=== PATIENT | female | born 1940 ===

== ENCOUNTER 2018-04-07 12:32 | Inpatient (IN) | payer MEDICARE ==
--- NOTE | 2018-04-07 13:30 | RAD ---
Date of service: 04/07/2018 PROCEDURE: CHEST RADIOGRAPH, 1 VIEW HISTORY: SOB COMPARISON: None available. FINDINGS: LUNGS: Left lower lung opacity. PLEURA: No pneumothorax or pleural fluid seen. CARDIOVASCULAR: Prior sternotomy with sternal wires and surgical clips in place. Atherosclerotic aortic calcifications. Cardiomediastinal silhouette at the upper limits of normal in size. OSSEOUS STRUCTURES: Degenerative changes. VISUALIZED UPPER ABDOMEN: Normal. OTHER FINDINGS: None. IMPRESSION: Left lower lung opacity. CT scan can be obtained for further evaluation as clinically warranted.
[2018-04-07 13:58] LABS: CALCIUM 8.6 mg/dl (8.6-10.4)
[2018-04-07 14:11] LABS: FREE T4 0.66 ng/dL (0.78-2.19)
[2018-04-07 14:21] LABS: ALB/GLOB RATIO 0.9 (1.0-2.1); ALBUMIN 4.5 g/dL (3.5-5.0); TROPONIN I 0.035 ng/mL (0.00-0.120)
[2018-04-07] MEDS ORDERED: Sodium Chloride 0.9% 1,000 ML IV ONE (14:24)
[2018-04-07 14:30] LABS: SQUAMOUS EPITHIAL 2 /hpf (0-5); URINE BACTERIA MOD (<OCC); URINE BILIRUBIN NEGATIVE (NEGATIVE); URINE BLOOD NEGATIVE (NEGATIVE); URINE CLARITY Hazy (Clear); URINE COLOR Amber (YELLOW); URINE GLUCOSE (UA) NORMAL (Normal); URINE LEUKOCYTE ESTERASE 2+ Leu/uL (Negative); URINE PROTEIN NEGATIVE (NEGATIVE)
[2018-04-07] MEDS ORDERED: Sodium Chloride 0.9% 1,000 ML ONE (14:42)
--- NOTE | 2018-04-07 14:42 | CT ---
Date of service: 04/07/2018 PROCEDURE: CT Chest without contrast HISTORY: LLL opacity on CXR COMPARISON: None. TECHNIQUE: Contiguous axial images were obtained through the chest without intravenous contrast enhancement. Sagittal and coronal reconstructions were performed. Radiation dose (DLP): 14.3 mGy-cm. This CT exam was performed using one or more of the following dose reduction techniques: Automated exposure control, adjustment of the mA and/or kV according to patient size, and/or use of iterative reconstruction technique. FINDINGS: LUNGS: Left lower lobe atelectasis. Visualized airway clear. MEDIASTINUM: Unremarkable thoracic aorta. No aneurysm. Normal sized heart. Main pulmonary artery unremarkable. No vascular congestion. No lymphadenopathy. PLEURA: Small partially loculated left lower lobe effusion. No pneumothorax. BONES: No acute fracture. No destructive lesion. UPPER ABDOMEN: Grossly unremarkable. OTHER FINDINGS: None. IMPRESSION: Small partially loculated left lower lobe effusion with subjacent atelectasis.
--- NOTE | 2018-04-07 14:55 | CT ---
Date of service: 04/07/2018 PROCEDURE: CT HEAD WITHOUT CONTRAST. HISTORY: Dizziness COMPARISON: No prior study available for comparison. TECHNIQUE: Axial computed tomography images were obtained through the head/brain without intravenous contrast. Radiation dose: Total exam DLP = mGy-cm. This CT exam was performed using one or more of the following dose reduction techniques: Automated exposure control, adjustment of the mA and/or kV according to patient size, and/or use of iterative reconstruction technique. FINDINGS: HEMORRHAGE: No acute parenchymal, subarachnoid or extra-axial hemorrhage. BRAIN: Mild diffuse/ confluent chronic periventricular white matter ischemic changes seen extending into the deep white matter both cerebral hemispheres. . Moderate central volume loss evidenced by disproportionate enlargement of the ventricles compared sulci. Mild vascular calcifications both carotid siphons and vertebral arteries. VENTRICLES: No obstructive hydrocephalus. CALVARIUM: Unremarkable. PARANASAL SINUSES: Unremarkable as visualized. No significant inflammatory changes. MASTOID AIR CELLS: Partial opacification left mastoid air complex. . OTHER FINDINGS: Changes of bilateral cataract surgery are present. IMPRESSION: No acute intracranial hemorrhage. Mild chronic periventricular white matter ischemic changes. Moderate central volume loss.
--- NOTE | 2018-04-07 15:04 | C.PDOC ---
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 Limitations: language barrier Onset/Duration Of Symptoms: Days (1) Current Symptoms Are (Timing): Still Present Current Symptoms: Generalized weakness Associated Symptoms Preceding Syncopal Episode: Lightheadedness, Worse With Standing Fall Associated With With Symptoms: No Severity: Moderate Additional History Per: Prior Records - Symptoms Of CVA Recent Head Trauma: No Past Medical History Reviewed: Historical Data, Nursing Documentation, Vital Signs Vital Signs: Last Vital Signs Temp 98.5 F 04/07/18 12:35 Pulse 56 L 04/07/18 15:04 Resp 12 04/07/18 15:04 BP 152/68 H 04/07/18 15:04 Pulse Ox 97 04/07/18 15:05 - Medical History PMH: CAD, Dementia, Depression, Diabetes (type II), HTN, Hypercholesterolemia, Hyperlipidemia, Hypothyroidism Surgical History: CABG Family History: States: Unknown Family Hx - Social History Hx Tobacco Use: No Hx Alcohol Use: No Hx Substance Use: No - Immunization History Hx Tetanus Toxoid Vaccination: No Hx Influenza Vaccination: No Hx Pneumococcal Vaccination: No Review Of Systems Except As Marked, All Systems Reviewed And Found Negative. Constitutional: Positive for: Weakness, Malaise Cardiovascular: Negative for: Chest Pain Respiratory: Positive for: Shortness of Breath. Negative for: Cough Gastrointestinal: Negative for: Vomiting, Abdominal Pain, Diarrhea Musculoskeletal: Negative for: Neck Pain Skin: Negative for: Rash Neurological: Negative for: Weakness, Numbness, Seizures Physical Exam - Physical Exam Appears: Non-toxic, No Acute Distress Skin: Normal Color, Warm, Dry, No Rash Head: Atraumatic, Normacephalic Eye(s): bilateral: PERRL, EOMI Oral Mucosa: Dry Neck: Normal ROM, Supple Cardiovascular: Rhythm Regular Respiratory: Normal Breath Sounds, No Accessory Muscle Use Gastrointestinal/Abdominal: Soft, No Tenderness Back: No CVA Tenderness Extremity: Normal ROM, No Pedal Edema, No Calf Tenderness Neurological/Psych: Oriented x3, Normal Motor, Normal Sensation ED Course And Treatment - Laboratory Results Result Diagrams: 04/07/18 15:35 04/07/18 13:30 Interpretation Of Abnormal: Elevated BUN. UTI. ECG: Interpreted By Me, Viewed By Me ECG Rhythm: Sinus Rhythm, Nonspecific Changes Rate From EC O2 Sat by Pulse Oximetry: 97 Pulse Ox Interpretation: Normal - Radiology CXR: Viewed By Me, Read By Radiologist CXR Interpretation: Yes: Other (Left lower lung opacity. CT scan can be obtained for further evaluation as clinically warranted.) - CT Scan/US CT head Other Rad Studies (CT/US): Read By Radiologist, Radiology Report Reviewed CT/US Interpretation: IMPRESSION: No acute intracranial hemorrhage. Mild chronic periventricular white matter ischemic changes. Moderate central volume loss. CT chest Other Rad Studies (CT/US): Read By Radiologist, Radiology Report Reviewed CT/US Interpretation: IMPRESSION: Small partially loculated left lower lobe effusion with subjacent atelectasis. Progress - Interventions Interventions:: Observation, Intravenous fluid - Data Reviewed Data Reviewed: Lab, Diagnostic imaging, EKG, Old records - Patient Status Patient status: Partially improved - Continuity of Care Discussed patient case with:: Patient, ED Nurse, On-call PMD-pt unassigned - Patient Plan Patient Plan: Admission Disposition Discussed With : Bianca Martines Comment: She accepted pt on her service. Doctor Will See Patient In The: Hospital Counseled Patient/Family Regarding: Studies Performed, Diagnosis - Disposition Disposition: HOSPITALIZED Disposition Time: 15:59 Condition: FAIR - Clinical Impression Clinical Impression: Dizziness, UTI (urinary tract infection), Dehydration, Loculated pleural effusion
[2018-04-07 15:39] LABS: BASO # 0.1 K/uL (0.0-0.2); BASO % 0.8 % (0.0-2.0); EOS # 0.1 K/uL (0.0-0.7); EOS % 1.1 % (0.0-4.0); HEMOGLOBIN 11.9 g/dL (11.0-16.0); LYMPH # 2.9 K/uL (1.0-4.3); LYMPH % 36.3 % (20.0-40.0); MEAN CELL VOLUME 99.6 fL (81.0-99.0); MEAN CORPUSCULAR HGB CONC 34.2 g/dL (33.0-37.0); MEAN PLATELET VOLUME 10.5 fL (7.2-11.7); MONO # 0.5 K/uL (0.0-0.8); MONO % 5.9 % (0.0-10.0); NEUT # 4.5 K/uL (1.8-7.0); NEUT % 55.9 % (50.0-75.0); RBC 3.49 Mil/uL (3.80-5.20); RED CELL DISTRIBUTION WIDTH 14.6 % (11.5-14.5); WHITE BLOOD COUNT 8.1 K/uL (4.8-10.8)
[2018-04-07] MEDS ORDERED: Ciprofloxacin 400mg/200ml D5W 400 MG/200 ML BAG IVPB STA (15:48)
[2018-04-07] MEDS ORDERED: Ciprofloxacin 400mg/200ml D5W 400 MG/200 ML BAG IVPB ONE (15:58)
--- NOTE | 2018-04-07 21:34 | CP.PCM.PN ---
Subjective - Date & Time of Evaluation Date of Evaluation: 04/07/18 Time of Evaluation: 21:34 - Subjective Subjective: H&P dictated #[id number] Objective - Vital Signs/Intake and Output Vital Signs (last 24 hours): Temp Pulse Resp BP Pulse Ox 98.4 F 61 20 150/62 96 04/07/18 18:51 04/07/18 18:51 04/07/18 18:51 04/07/18 18:51 04/07/18 18:51 - Medications Medications: Current Medications Pneumococcal Polyvalent Vaccine (Pneumovax 23 Vaccine) 0.5 ml IM .ONCE ONE Stop: 04/09/18 10:01 - Labs Labs: 04/07/18 15:35 04/07/18 13:30
[2018-04-07] MEDS ORDERED: Sod Polystyrene Sulf 15 gm/60 ml Susp PO ONE (21:48)
[2018-04-07] MEDS ORDERED: Moxifloxacin IV 400mg/250ml NS 400 MG/250 ML BAG IVPB SCH (22:00)
[2018-04-08 07:31] LABS: BASO % 0.5 % (0.0-2.0); EOS # 0.1 K/uL (0.0-0.7); HEMOGLOBIN 11.3 g/dL (11.0-16.0); LYMPH % 41.5 % (20.0-40.0); MEAN CELL VOLUME 99.1 fL (81.0-99.0); MEAN CORPUSCULAR HEMOGLOBIN 34.3 pg (27.0-31.0); MEAN CORPUSCULAR HGB CONC 34.6 g/dL (33.0-37.0); MEAN PLATELET VOLUME 11.1 fL (7.2-11.7); MONO # 0.6 K/uL (0.0-0.8); MONO % 7.6 % (0.0-10.0); NEUT # 3.5 K/uL (1.8-7.0); NEUT % 48.4 % (50.0-75.0); NRBC % 0.1 % (0.0-2.0); RBC 3.3 Mil/uL (3.80-5.20); RED CELL DISTRIBUTION WIDTH 14.6 % (11.5-14.5); WHITE BLOOD COUNT 7.3 K/uL (4.8-10.8)
[2018-04-08 07:33] LABS: LDL CHOLESTEROL 92 mg/dL (0-129)
[2018-04-08 07:35] LABS: ALB/GLOB RATIO 0.8 (1.0-2.1); ALBUMIN 3.6 g/dL (3.5-5.0); ALT/SGPT 51 U/L (9-52); AST/SGOT 115 U/L (14-36); BLOOD UREA NITROGEN 19 mg/dL (7-17); CALCIUM 8.4 mg/dl (8.6-10.4); GFR AFRICAN-AMERICAN > 60; GFR NON-AFRICAN AMERICAN 53; HDL CHOLESTEROL 37 mg/dL (30-70)
[2018-04-08 07:44] LABS: T4 6.17 ug/dL (5.5-11.0)
--- NOTE | 2018-04-08 09:27 | CP.PCM.PN ---
Subjective - Date & Time of Evaluation Date of Evaluation: 04/08/18 Time of Evaluation: 09:27 - Subjective Subjective: Progress note dictated #[id number] Objective - Vital Signs/Intake and Output Vital Signs (last 24 hours): Temp Pulse Resp BP Pulse Ox 98.1 F 67 20 122/74 96 04/07/18 23:45 04/07/18 23:45 04/07/18 23:45 04/07/18 23:45 04/07/18 23:45 Intake and Output: 04/08/18 04/08/18 06:59 18:59 Intake Total 360 Balance 360 - Medications Medications: Current Medications Amlodipine Besylate (Norvasc) 5 mg PO DAILY [facility] Clopidogrel Bisulfate (Plavix) 75 mg PO DAILY [facility] Heparin Sodium (Porcine) (Heparin) 5,000 units SC Q12 [facility] Sodium Chloride (Sodium Chloride 0.45%) 1,000 mls @ 60 mls/hr IV .[id number] [facility] Aztreonam 500 mg/ Sodium (Chloride) 50 mls @ 100 mls/hr IVPB Q8H [facility] PRN Reason: Protocol Levothyroxine Sodium (Levothroid) 137 mcg PO DAILY@0630 [facility] Last Admin: 04/08/18 05:46 Dose: 137 mcg Losartan Potassium (Cozaar) 100 mg PO DAILY [facility] Meclizine HCl (Antivert) 25 mg PO DAILY PRN PRN Reason: dizziness Memantine (Namenda) 10 mg PO BID [facility] Pneumococcal Polyvalent Vaccine (Pneumovax 23 Vaccine) 0.5 ml IM .ONCE ONE Stop: 04/09/18 10:01 Potassium Phos/Sodium Phos (Neutra-Phos) 1 pkt PO QID [facility] Stop: 04/10/18 10:01 Rosuvastatin Calcium (Crestor) 5 mg PO HS [facility] Last Admin: 04/07/18 22:59 Dose: 5 mg Venlafaxine HCl (Effexor Xr) 75 mg PO DAILY [facility] - Labs Labs: 04/08/18 06:44 04/08/18 06:44
--- NOTE | 2018-04-08 10:32 | HP ---
CHIEF COMPLAINT: The patient is complaining that she is not feeling well over the past one week, dizziness after increased frequency of urination. HISTORY OF PRESENT ILLNESS: Ms. Vazquez is an 78-year-old female with past medical history of CAD, status post CABG, hypertension, hyperlipidemia, hypothyroidism, dementia, diabetes mellitus, who has been following up with Dr. Елена Jo as primary care physician, came into the emergency room brought by EMS for symptoms of not feeling well, fatigued, and dizziness. The history obtained from the patient by a Azeri-speaking compensation expert, who is an RN. As per the patient, she has not been feeling well, feeling tired, fatigued, dizziness with increased frequency of urination and has not been eating well over the past five days to one week. She lives with her son and while she was alone at home, she went to the neighbor claiming that she was not feeling well and requested for ambulance to be called, so the patient was brought into the emergency room. The patient denies any headache. She feels lightheaded while she is getting up and walking around. Denies any chest pain, shortness of breath, or trouble breathing. Denies any nausea, vomiting, abdominal pain, diarrhea, or constipation and complaining of increased frequency of urination. Denies any other neurologic symptoms. Denies any joint pain or swelling. PAST MEDICAL HISTORY: As described hypertension, hyperlipidemia, diabetes mellitus, dementia, hypothyroidism, coronary artery disease, status post CABG. PAST SURGICAL HISTORY: Underwent bypass surgery. FAMILY HISTORY: Nothing contributory to the present illness. PERSONAL HISTORY: She lives with her son. Daughter is power of ip attorney. SOCIAL HISTORY: Denies smoking, alcohol, or drug abuse. ALLERGIES: ALLERGIC TO PENICILLIN. HOME MEDICATIONS: Include meclizine 25 mg p.o. as needed, Norvasc 5 mg daily, Namenda 25 mg daily, Zocor 20 mg daily, nitrofurantoin 100 mg p.o. b.i.d., losartan 100 mg daily, Synthroid 100 mcg daily, Plavix 75 mg daily, venlafaxine 75 mg daily. REVIEW OF SYSTEMS: As described in the history of present illness. All other systems reviewed and were found to be negative. PHYSICAL EXAMINATION: GENERAL: Elderly appearing adult female, lying in bed, in no acute distress. VITAL SIGNS: Blood pressure is 122/74, pulse 67, respirations 20, temperature 98.1 degree Fahrenheit, O2 sats 96% on room air. HEENT: Pupils equal, round, and reacting to light and accommodation. Extraocular muscles intact. No icterus. No pallor. No oral thrush. No pharyngeal congestion. NECK: Supple. No JVD. LUNGS: Bilateral vesicular breath sounds. No wheezing. No rhonchi. CVS: S1, S2 present. ABDOMEN: Soft and nontender. Bowel sounds present. No guarding. No rigidity. No rebound tenderness noted. 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 No focal deficits noted. EXTREMITIES: No edema. Palpable peripheral pulses. LABORATORY DATA: Labs done from the ED, WBC 8.1, hemoglobin 11.9, hematocrit 34.1, platelets 141. Sodium 139, potassium 5.7, chloride 106, bicarb 23, BUN 27, creatinine 1.2, glucose 128, calcium 8.6, magnesium 2.2. Total bilirubin 2.4, AST 110, ALT 21, alkaline phosphatase 576, troponin 0.0350, BMP 158, total protein 9.7, albumin 4.5, globulin 5.2, free T4 is 0.66, TSH is 79.6. UA specific gravity 1.020, pH 5.0, urobilinogen is 4, leukocyte esterase 2+, wbc 55. Head CT: Negative for any intracranial hemorrhage. Mild chronic periventricular white matter ischemic changes, moderate central volume loss. Chest CT: Small partially loculated left lower lobe effusion with subjacent atelectasis. Chest x-ray: Left lower lung opacity. EKG: Normal sinus rhythm at 59 beats per minute. No acute ST-T changes. ASSESSMENT: Elderly female with history of hypertension, hyperlipidemia, diabetes mellitus, dementia, hypothyroidism, coronary artery disease, status post coronary artery bypass grafting admitted for generalized fatigue, weakness, and dizziness with increased frequency of urination. Urinalysis consistent with urinary tract infection and CT of the chest shows small partially loculated left lower lobe effusion, and the patient is being admitted for further management. 1. Urinary tract infection, failed outpatient therapy. 2. Hyperkalemia. 3. Left small loculated pleural effusion. 4. Abnormal liver function test. 5. Hypothyroidism. PLAN: The patient is being admitted to the hospital, received ciprofloxacin in the emergency department. We will give Avelox 400 mg IV daily, pending urine culture and blood culture results. We will give Kayexalate one dose, repeat labs in the morning, increase Synthroid to 137 mcg. We will obtain Endocrinology and Pulmonary consults. We will restart all her home medications. We will give gentle hydration with half normal saline at 60 mL/hr. We will add further recommendations as her clinical course progresses. Bianca Martines MD
[2018-04-08] MEDS: Venlafaxine 75 mg ER Cap PO SCH (10:37)
[2018-04-08] MEDS: Sodium Chloride 0.45% 1,000 ML IV SCH ×2 (10:55→17:25)
[2018-04-08] MEDS: Potassium & Sodium Phosphate PO SCH ×5 (10:56→22:04)
--- NOTE | 2018-04-08 12:35 | CON ---
DATE: 04/07/2018 ENDOCRINOLOGY CONSULT ROOM: 357. HISTORY OF PRESENT ILLNESS: This is an 78-year-old female with known history of hypothyroidism, currently on levothyroxine taken as 100 mcg daily, presenting here with progressively worsening dizziness and lightheadedness and generalized body weakness and was evaluated to have moderate hypothyroidism and is being referred now for endocrine evaluation and management. PAST MEDICAL HISTORY: As mentioned above, history of coronary artery disease and hypertension with underlying dyslipidemia, history of hypothyroidism, currently on levothyroxine replacement therapy as mentioned. She has a previous coronary artery bypass graft surgery some years ago; history of generalized anxiety and depression, on psychotropic medications; history of type 2 diabetes and hypertension; currently off any diabetic medications at this time. FAMILY HISTORY: Positive for hypertension and diabetes. SOCIAL HISTORY: The patient has a supportive family. No known substance use. REVIEW OF SYSTEMS: As per the family, through the wind commissioning technician, the patient has been noted to have increasing confusion and disorientation with progressively worsening dizziness and lightheadedness, worsened in the last few days prior to admission. She was also noted to have increasing hypersomnolence and lethargy with generalized body weakness. No chest pains or palpitations, but admits to progressive shortness of breath initially on exertion and then at rest. Her oral intake has been poor and suboptimal with nausea and dyspepsia and habitual constipation. No recent alterations of urinary patterns otherwise. PHYSICAL EXAMINATION: GENERAL: This is an average-built female in no apparent distress. VITAL SIGNS: Blood pressure 140/80, pulse of 60 beats per minute and regular, temperature 98, and respirations 20. Height is 5 feet and weight is 107 pounds. HEENT: Head is normocephalic. Eyes are anicteric with pink conjunctivae. Funduscopy not possible at this time. Ears, nose, and throat are otherwise normal. NECK: Supple. Thyroid gland is firm and nontender with no overt thyroid nodules or thyroid bruits, nor any cervical lymphadenopathy. HEART: Adynamic precordium. S1 and S2, slow and regular. LUNGS: Clear to auscultation. ABDOMEN: Flat, soft with positive bowel sounds. EXTREMITIES: No peripheral edema. Pulses are +2 bilaterally. There is mild facial edema noted at this time. LABORATORY DATA: Her chemistry showed a BUN of 27, sodium 139, potassium 5.7, chloride 106, CO2 of 23, glucose 111, and creatinine 1.2. ASSESSMENT: This is an 78-year-old female with overt hypothyroidism, both historically, clinically and biochemically, most likely related to possible drug omission and/or a suboptimal therapeutic dosing regimen. Although with the patient's body mass index, she clearly would require a much lower levothyroxine replacement therapy and with concomitant dementia would expect inadvertant drug omission of the levothyroxine medication as given. She most likely has underlying autoimmune thyroiditis, causing the above mentioned. She has significant history of coronary artery disease with a prior coronary artery bypass graft surgery and hypertension and dyslipidemia. PLAN OF MANAGEMENT: We will continue the levothyroxine and modify to higher dose of 137 mcg daily as ordered. However, we will obtain a comprehensive thyroid hormonal profile with a total T4 or thyroxine level tomorrow and a repeat TSH level as ordered. A thyroid peroxidase antibody and thyroglobulin antibody will be sent out to confirm and indicate the presence of underlying thyroid autoimmunity. We will obtain serial chemistries and supplement accordingly as needed. A hemoglobin A1c will be done to confirm her prior glycemic control as she has been taken off all diabetic medications at this time. We will obtain serial chemistries and supplement accordingly as needed. We will follow. Rylie Noble MD
--- NOTE | 2018-04-08 16:34 | CP.PCM.CON ---
History of Present Illness - History of Present Illness History of Present Illness: Pulmonology consulted for loculated effussion HPI: 78 year old female patient with past medical history of CAD, dementia, diabetes (type II), hypertension, hypercholesterolemia, hyperlipidemia, hypothyroidism and CABG presented to the ED with chief complaint of lightheadeness. Patient reports that the symptoms started about 2 weeks ago. Patient was brought in by EMS yesterday because she loss her balance and fell.Patient denies any shortness of breath, chest pain, headache, nausea, diarrhea or vomiting. Patient reports that she feels better today and is no longer lightheaded. Patient's chest CT shows small partially loculated left lower lober effussion with subadjacent atelectasis. Patient has no acute complaints. Surgery History: CABG Family History: Patient denies Social History: Patient denies drug use, smoking and alcohol consumption Medications: Amlodipine Besylate 5 mg PO Daily Aztheonam 500 mg in Sodium Chloride 50 mls@ 100 mls/hr IVPB Q8H Clopidogrel Bisulfate 75 mg PO Daily Heparin Sodium 5000 units SC Q12 Levothyroxine 137 mcg PO Daily Losartan Potassium 100 mg PO Daily Meclizine 25 mg PO Daily Memantine 10 mg PO Daily Rosuvastatin 5 mg PO HS Venlaflaxine 75 mg PO Daily ROS: Constitutional: Patient denies fever and chills Cardiovascular: Patient denies chest pain, palpitations Respiratory: Patient denies shortness of breath, cough Gastrointestinal: Patient denies nausea, vomiting, diarrhea. Neurological: AAO X3, normal speech Physical Exam HEENT: Atraumatic, normocephalic, mucuous membranes moist Respiratory: Clear to auscultation bilaterally. No wheezing, rales, rhonchi. No use of accessory muscles. Cardiovascular: +S1/S2, regular rate and rhythm GI: Normal bowel sounds in all 4 quadrants, no tenderness, no distention Extremities: No LE edema Neurological: Alert, awake, oriented X3 Assessment: 78 year old female patient with past medical history of CAD, dementia, diabetes (type II), hypertension, hypercholesterolemia, hyperlipidemia, hypothyroidism and CABG presented to the ED with chief complaint of lightheadeness. Patient has a left small loculated pleural effussion and is asymptomatic. 1. Left occulated pleural effussion Status: Acute - IR to be consulted for drainage - Patient is asymptomatic to pleural effusion 2. Urinary Tract Infection Status: - Aztreonam 500 mg in Sodium Chloride 50 mls@ 100 mls/hr IVPB Q8H 3. HTN Status: Chronic - Amlodipine Besylate 5 mg PO Daily - Losartan Potassium 100 mg PO Daily 5. Hyperlipidemia Status : Chronic - Rosuvastatin 5 mg PO HS Past Patient History - Past Medical History & Family History Past Medical History?: Yes - Past Social History Smoking Status: Never Smoked - CARDIAC Hx Hypercholesterolemia: Yes Hx Hypertension: Yes - PULMONARY Hx Tuberculosis: No - NEUROLOGICAL Hx Alzheimer's Disease: Yes Hx Dementia: Yes Hx Dizziness: Yes - ENDOCRINE/METABOLIC Hx Diabetes Mellitus Type 2: Yes Hx Hypothyroidism: Yes - HEMATOLOGICAL/ONCOLOGICAL Hx Cancer: No Hx Human Immunodeficiency Virus (HIV): No - MUSCULOSKELETAL/RHEUMATOLOGICAL Hx Falls: No - GENITOURINARY/GYNECOLOGICAL Hx Sexually Transmitted Disorders: No - PSYCHIATRIC Hx Depression: Yes Hx Substance Use: No - SURGICAL HISTORY Hx Coronary Artery Bypass Graft: Yes - ANESTHESIA Hx Anesthesia: Yes Hx Anesthesia Reactions: No Meds Allergies/Adverse Reactions: Allergies Allergy/AdvReac Type Severity Reaction Status Date / Time Penicillins Allergy RASH Verified 12/21/16 17:48 - Medications Medications: Current Medications Amlodipine Besylate (Norvasc) 5 mg PO DAILY [facility] Last Admin: 04/08/18 10:38 Dose: 5 mg Clopidogrel Bisulfate (Plavix) 75 mg PO DAILY [facility] Last Admin: 04/08/18 10:42 Dose: 75 mg Heparin Sodium (Porcine) (Heparin) 5,000 units SC Q12 [facility] Last Admin: 04/08/18 10:38 Dose: 5,000 units Sodium Chloride (Sodium Chloride 0.45%) 1,000 mls @ 60 mls/hr IV .[id number] [facility] Last Admin: 04/08/18 10:55 Dose: 60 mls/hr Aztreonam 500 mg/ Sodium (Chloride) 50 mls @ 100 mls/hr IVPB Q8H [facility] PRN Reason: Protocol Last Admin: 04/08/18 11:26 Dose: 100 mls/hr Levothyroxine Sodium (Levothroid) 137 mcg PO DAILY@0630 [facility] Last Admin: 04/08/18 05:46 Dose: 137 mcg Losartan Potassium (Cozaar) 100 mg PO DAILY [facility] Last Admin: 04/08/18 10:37 Dose: 100 mg Meclizine HCl (Antivert) 25 mg PO DAILY PRN PRN Reason: dizziness Last Admin: 04/08/18 10:37 Dose: 25 mg Memantine (Namenda) 10 mg PO BID [facility] Last Admin: 04/08/18 10:37 Dose: 10 mg Pneumococcal Polyvalent Vaccine (Pneumovax 23 Vaccine) 0.5 ml IM .ONCE ONE Stop: 04/09/18 10:01 Potassium Phos/Sodium Phos (Neutra-Phos) 1 pkt PO QID [facility] Stop: 04/10/18 10:01 Last Admin: 04/08/18 14:13 Dose: 1 pkt Rosuvastatin Calcium (Crestor) 5 mg PO HS [facility] Last Admin: 04/07/18 22:59 Dose: 5 mg Venlafaxine HCl (Effexor Xr) 75 mg PO DAILY [facility] Last Admin: 04/08/18 10:37 Dose: 75 mg Results - Vital Signs Recent Vital Signs: Last Vital Signs Temp 98.1 F 04/07/18 23:45 Pulse 67 04/07/18 23:45 Resp 20 04/07/18 23:45 BP 122/74 04/07/18 23:45 Pulse Ox 96 04/07/18 23:45 - Labs Result Diagrams: 04/08/18 06:44 04/08/18 06:44 Labs: Laboratory Results - last 24 hr 04/08/18 04/08/18 04/08/18 06:44 06:44 06:44 WBC 7.3 RBC 3.30 L Hgb 11.3 Hct 32.7 L MCV 99.1 H MCH 34.3 H MCHC 34.6 RDW 14.6 H Plt Count 132 MPV 11.1 Neut % (Auto) 48.4 L Lymph % (Auto) 41.5 H [place] % (Auto) 7.6 Eos % (Auto) 2.0 Baso % (Auto) 0.5 Neut # (Auto) 3.5 Lymph # (Auto) 3.0 [place] # (Auto) 0.6 Eos # (Auto) 0.1 Baso # (Auto) 0.0 Sodium 142 Potassium 3.6 Chloride 107 Carbon Dioxide 26 Anion Gap 12 BUN 19 H Creatinine 1.0 Est GFR ( Amer) > 60 Est GFR (Non-Af Amer) 53 Random Glucose 105 Hemoglobin A1c 5.7 Calcium 8.4 L Phosphorus 2.1 L Magnesium 2.0 Total Bilirubin 1.0 AST 115 H ALT 51 Alkaline Phosphatase 515 H Total Protein 8.0 Albumin 3.6 Globulin 4.4 H Albumin/Globulin Ratio 0.8 L Triglycerides 77 Cholesterol 176 LDL Cholesterol Direct 92 HDL Cholesterol 37 Thyroxine (T4) 6.17 TSH 3rd Generation 69.00 H Cortisol AM Sample 04/08/18 06:44 WBC RBC Hgb Hct MCV MCH MCHC RDW Plt Count MPV Neut % (Auto) Lymph % (Auto) [place] % (Auto) Eos % (Auto) Baso % (Auto) Neut # (Auto) Lymph # (Auto) [place] # (Auto) Eos # (Auto) Baso # (Auto) Sodium Potassium Chloride Carbon Dioxide Anion Gap BUN Creatinine Est GFR ( Amer) Est GFR (Non-Af Amer) Random Glucose Hemoglobin A1c Calcium Phosphorus Magnesium Total Bilirubin AST ALT Alkaline Phosphatase Total Protein Albumin Globulin Albumin/Globulin Ratio Triglycerides Cholesterol LDL Cholesterol Direct HDL Cholesterol Thyroxine (T4) TSH 3rd Generation Cortisol AM Sample 9.4
--- NOTE | 2018-04-08 17:49 | CARD ---
APPROVED REPORT Date of service: 04/07/2018 EKG Measurement Heart [id number] QT0T0 QTc0 <Conclusion> No QRS complexes found, no ECG analysis possible
--- NOTE | 2018-04-08 18:56 | PN ---
DATE: 04/08/2018 ENDO FOLLOWUP NOTE. LOCATION: In room 357. SUBJECTIVE: This is an 78-year-old female with increasing generalized body weakness and progressing bouts of dizziness and lightheadedness and evaluated to have moderate hypothyroidism and is now being followed closely for metabolic management. Her repeat thyroid studies today showed a T4 of 6.17 with a TSH of 69 and a free T4 of 0.66. Her chemistry showed a BUN of 19, sodium 140, potassium 3.6, chloride 107, CO2 of 26, glucose 105, and creatinine 1. Her hemoglobin A1c is 5.7% indicative of early prediabetes. ASSESSMENT: This is an 78-year-old female with overt hypothyroidism noted both clinically and biochemically, most likely related to a subtherapeutic levothyroxine replacement therapy and a strong possibility of drug omission with the underlying dementia and increasing by the patient as per the staff. She clearly has underlying autoimmune thyroiditis with a longstanding history of hypothyroidism as noted thereof. PLAN OF MANAGEMENT: We will continue the levothyroxine given as 137 mcg once daily as titrated to higher dosing and ordered thereof. We will obtain serial thyroid studies and titrate the dose regimen accordingly. We will obtain serial chemistry and supplement accordingly as needed. We will also await the reports of the thyroid peroxidase antibody and thyroglobulin antibody, which will confirm an presence of underlying thyroid autoimmunity. We will obtain serial chemistries and supplement accordingly as needed. We will follow. Rylie Noble MD
--- NOTE | 2018-04-09 00:58 | PN ---
DATE: 04/08/2018 SUBJECTIVE: The patient was seen and examined at bedside. The patient offers no new complaints. Feeling better than yesterday. PHYSICAL EXAMINATION: GENERAL: Elderly female, lying in bed, in no acute distress. VITAL SIGNS: Blood pressure 138/72, pulse 63, respirations 20, temperature 98 degree Fahrenheit, O2 sat is 98% on room air. HEENT: Pupils equal, round, and reacting to light and accommodation. Extraocular muscles intact. No icterus. No pallor. NECK: Supple. No JVD. LUNGS: Bilateral vesicular breath sounds. No wheezing heard. CVS: S1 and S2 present and regular. ABDOMEN: Soft. Nontender. Bowel sounds present. No guarding. No rigidity. No rebound tenderness noted. SDET: Alert, awake, and oriented x3. No focal deficits noted. EXTREMITIES: No edema. Palpable peripheral pulses. MEDICATIONS: Include amlodipine 5 mg daily, Azactam 500 mg every 8 hours, Plavix 75 mg daily, heparin 5000 units subcu every 12 hours, Synthroid 137 mcg daily, Cozaar 100 mg p.o. daily, Antivert 25 mg daily, Namenda 10 mg daily, calcium 10 mg b.i.d., Crestor 5 mg p.o. at bedtime, Effexor 75 mg p.o. daily. LABORATORY DATA: Labs from this morning: WBC 7.3, hemoglobin 9.3, hematocrit 32.7, platelets 132. Sodium 142, potassium 3.6, chloride 107, bicarb 36, BUN 19, creatinine 1, hemoglobin A1c 5.7, calcium 8.4, phosphorus 2.1, magnesium 2. AST 115, ALT 51, alkaline phosphatase 515. Total protein 8, albumin 3.6, triglycerides 77, cholesterol 176, LDL 92, HDL 37. TSH is 69. Cortisol a.m. is 9.4. Urine culture consistent with gram-negative rods. Identification and sensitivity pending. ASSESSMENT AND PLAN: Elderly female with history of hypertension, hyperlipidemia, diabetes mellitus, dementia, hypothyroidism, history of coronary artery disease, status post coronary artery bypass graft surgery, admitted for urinary tract infection, left loculated pleural effusion. Urine culture growing gram-negative rods. We will continue with Azactam. Pulmonary consult and endocrinology consult appreciated. Her blood pressure is stable on current medication. Her Synthroid is increased to 137 mcg. We will monitor TFTs. We will continue with the current medication, for possible left pleural effusion drainage by IR, as per Pulmonary. We will get social problems specialist for discharge planning. Bianca Martines MD
[2018-04-09 08:24] LABS: ALB/GLOB RATIO 0.8 (1.0-2.1); ALBUMIN 3.5 g/dL (3.5-5.0); ALT/SGPT 63 U/L (9-52); AST/SGOT 119 U/L (14-36); BLOOD UREA NITROGEN 12 mg/dL (7-17); CALCIUM 8.1 mg/dl (8.6-10.4); GFR AFRICAN-AMERICAN > 60; GFR NON-AFRICAN AMERICAN > 60
[2018-04-09] MEDS ORDERED: Pneumococcal 23-Valent Vaccine IM ONE (10:00)
--- NOTE | 2018-04-09 10:03 | CP.PCM.PN ---
Subjective - Date & Time of Evaluation Date of Evaluation: 04/09/18 Time of Evaluation: 10:03 - Subjective Subjective: Progress note dictated #[id number] Objective - Vital Signs/Intake and Output Vital Signs (last 24 hours): Temp Pulse Resp BP Pulse Ox 98.5 F 63 20 132/83 97 04/09/18 08:00 04/09/18 08:00 04/09/18 08:00 04/09/18 08:00 04/09/18 08:00 Intake and Output: 04/09/18 04/09/18 06:59 18:59 Intake Total 980 Balance 980 - Medications Medications: Current Medications Amlodipine Besylate (Norvasc) 5 mg PO DAILY [facility] Last Admin: 04/08/18 10:38 Dose: 5 mg Clopidogrel Bisulfate (Plavix) 75 mg PO DAILY [facility] Last Admin: 04/08/18 10:42 Dose: 75 mg Heparin Sodium (Porcine) (Heparin) 5,000 units SC Q12 [facility] Last Admin: 04/08/18 22:02 Dose: 5,000 units Sodium Chloride (Sodium Chloride 0.45%) 1,000 mls @ 60 mls/hr IV .[id number] [facility] Last Admin: 04/08/18 17:25 Dose: Not Given Aztreonam 500 mg/ Sodium (Chloride) 50 mls @ 100 mls/hr IVPB Q8H [facility] PRN Reason: Protocol Last Admin: 04/09/18 02:07 Dose: 100 mls/hr Levothyroxine Sodium (Levothroid) 137 mcg PO DAILY@0630 [facility] Last Admin: 04/09/18 05:35 Dose: 137 mcg Losartan Potassium (Cozaar) 100 mg PO DAILY [facility] Last Admin: 04/08/18 10:37 Dose: 100 mg Meclizine HCl (Antivert) 25 mg PO DAILY PRN PRN Reason: dizziness Last Admin: 04/08/18 10:37 Dose: 25 mg Memantine (Namenda) 10 mg PO BID [facility] Last Admin: 04/08/18 17:24 Dose: 10 mg Potassium Phos/Sodium Phos (Neutra-Phos) 1 pkt PO QID [facility] Stop: 04/10/18 10:01 Last Admin: 04/08/18 22:04 Dose: 1 pkt Rosuvastatin Calcium (Crestor) 5 mg PO HS [facility] Last Admin: 04/08/18 22:01 Dose: 5 mg Venlafaxine HCl (Effexor Xr) 75 mg PO DAILY [facility] Last Admin: 04/08/18 10:37 Dose: 75 mg - Labs Labs: 04/08/18 06:44 04/09/18 07:45
[2018-04-09] MEDS: Venlafaxine 75 mg ER Cap PO SCH (11:10)
[2018-04-09] MEDS: Potassium & Sodium Phosphate PO SCH ×4 (11:10→22:14)
[2018-04-09] MEDS: Sodium Chloride 0.45% 1,000 ML IV SCH (11:18)
[2018-04-09 15:14] LABS: SQUAMOUS EPITHIAL < 1 /hpf (0-5); URINE BACTERIA RARE (<OCC); URINE BILIRUBIN NEGATIVE (NEGATIVE); URINE BLOOD NEGATIVE (NEGATIVE); URINE CLARITY Clear (Clear); URINE COLOR Yellow (YELLOW); URINE GLUCOSE (UA) NORMAL (Normal); URINE LEUKOCYTE ESTERASE TRACE Leu/uL (Negative); URINE PROTEIN NEGATIVE (NEGATIVE)
--- NOTE | 2018-04-09 16:22 | CP.PCM.PN ---
Subjective - Date & Time of Evaluation Date of Evaluation: 04/09/18 Time of Evaluation: 10:00 - Subjective Subjective: Patient was seen and examined this morning at bedside. Patient had no acute episodes overnight. Patient reports that she feels dizzy and short of breath. Patient says that she was feeling better until today in the morning. As per nurse patients blood pressure decreases when getting up to use the bathroom. Patient's blood pressure also decreased when she was receiving physical therapy. Patient denies any headache, chest pain, nausea, vomiting, diarrhea. Surgery History: CABG Family History: Patient denies Social History: Patient denies drug use, smoking and alcohol consumption ROS: Constitutional: Patient denies fever and chills Cardiovascular: Patient denies chest pain, palpitations Respiratory: Patient denies any cough. Patient has shortness of breath. Gastrointestinal: Patient denies nausea, vomiting, diarrhea. Neurological: AAO X3, normal speech Physical Exam HEENT: Atraumatic, normocephalic, mucuous membranes moist Respiratory: Clear to auscultation bilaterally. No wheezing, rales, rhonchi. No use of accessory muscles. Cardiovascular: +S1/S2, regular rate and rhythm GI: Normal bowel sounds in all 4 quadrants, no tenderness, no distention Extremities: No LE edema Neurological: Alert, awake, oriented X3 Assessment: 78 year old female patient with past medical history of CAD, dementia, diabetes (type II), hypertension, hypercholesterolemia, hyperlipidemia, hypothyroidism and CABG presented to the ED with chief complaint of lightheadeness. Patient has a left small loculated pleural effussion and is asymptomatic. Patient has postural hypotension. 1. Left occulated pleural effussion Status: Acute - not enough fluid for drainage - Patient is asymptomatic to pleural effusion 2. Urinary Tract Infection Status: - Aztreonam 500 mg in Sodium Chloride 50 mls@ 100 mls/hr IVPB Q8H 3. HTN Status: Chronic - Amlodipine Besylate 5 mg PO Daily - Losartan Potassium 100 mg PO Daily 5. Hyperlipidemia Status : Chronic - Rosuvastatin 5 mg PO HS 4. Hypothyroidism Status: Chronic - Levothyroxine 137 mcg PO Daily Objective - Vital Signs/Intake and Output Vital Signs (last 24 hours): Temp Pulse Resp BP Pulse Ox 98.2 F 63 20 145/75 98 04/09/18 16:00 04/09/18 16:00 04/09/18 16:00 04/09/18 16:00 04/09/18 16:00 Intake and Output: 04/09/18 04/09/18 06:59 18:59 Intake Total 980 760 Balance 980 760 - Medications Medications: Current Medications Amlodipine Besylate (Norvasc) 5 mg PO DAILY [facility] Last Admin: 04/09/18 11:10 Dose: 5 mg Clopidogrel Bisulfate (Plavix) 75 mg PO DAILY [facility] Last Admin: 04/09/18 11:10 Dose: 75 mg Heparin Sodium (Porcine) (Heparin) 5,000 units SC Q12 [facility] Last Admin: 04/09/18 11:11 Dose: 5,000 units Sodium Chloride (Sodium Chloride 0.45%) 1,000 mls @ 60 mls/hr IV .[id number] [facility] Last Admin: 04/09/18 11:18 Dose: 60 mls/hr Aztreonam 500 mg/ Sodium (Chloride) 50 mls @ 100 mls/hr IVPB Q8H [facility] PRN Reason: Protocol Last Admin: 04/09/18 11:09 Dose: 100 mls/hr Levothyroxine Sodium (Levothroid) 137 mcg PO DAILY@0630 [facility] Last Admin: 04/09/18 05:35 Dose: 137 mcg Losartan Potassium (Cozaar) 100 mg PO DAILY [facility] Last Admin: 04/09/18 11:11 Dose: 100 mg Meclizine HCl (Antivert) 25 mg PO DAILY PRN PRN Reason: dizziness Last Admin: 04/09/18 11:17 Dose: 25 mg Memantine (Namenda) 10 mg PO BID [facility] Last Admin: 04/09/18 11:10 Dose: 10 mg Potassium Phos/Sodium Phos (Neutra-Phos) 1 pkt PO QID [facility] Stop: 04/10/18 10:01 Last Admin: 04/09/18 15:06 Dose: Not Given Rosuvastatin Calcium (Crestor) 5 mg PO HS [facility] Last Admin: 04/08/18 22:01 Dose: 5 mg Venlafaxine HCl (Effexor Xr) 75 mg PO DAILY [facility] Last Admin: 04/09/18 11:10 Dose: 75 mg - Labs Labs: 04/08/18 06:44 04/09/18 07:45
--- NOTE | 2018-04-09 23:22 | PN ---
DATE: 04/09/2018 SUBJECTIVE: The patient was seen and examined at the bedside. The patient is feeling much better. Denies any new complaints. All other systems reviewed and were found to be negative. PHYSICAL EXAMINATION: GENERAL: Elderly female, lying in bed in no acute distress. VITAL SIGNS: Blood pressure 145/75, pulse 63, respirations 20, temperature 98.1 degrees Fahrenheit, O2 sat is 98% on room air. HEENT: Pupils equal, round, reacting to light and accommodation. Extraocular muscles intact. No icterus. No pallor. No oral thrush. No pharyngeal congestion. NECK: Supple. No JVD. LUNGS: Bilateral vesicular breath sounds. No wheezing. No rhonchi. CVS: S1, S2 present and regular. ABDOMEN: Soft, nontender. Bowel sounds present. No guarding. No rigidity. No rebound tenderness noted. METER READER INSPECTOR: Alert, awake, oriented x3. No focal deficits noted. EXTREMITIES: No edema. Palpable peripheral pulses. MEDICATIONS: Include Norvasc 5 mg daily, Azactam 500 mg IV every 8 hours, Plavix 75 mg p.o. daily, heparin 5000 units subcutaneous every 12 hours, Synthroid 137 mcg p.o. daily, Cozaar 100 mg p.o. daily, meclizine 25 mg daily, Namenda 10 mg p.o. b.i.d., Neutra-Phos one pack p.o. four times a day, Crestor 5 mg p.o. at bedtime, half normal saline at 60 mL an hour, Effexor 75 mg p.o. daily. Repeat urine culture pending. Presented urine culture shows Klebsiella pneumoniae, sensitive to ceftriaxone, , cefazolin, ciprofloxacin, cefepime, meropenem, tazobactam. ASSESSMENT AND PLAN: Elderly female with a past medical history of hypertension, hyperlipidemia, hypothyroidism, diabetes mellitus, dementia, coronary artery disease, status post coronary artery bypass grafting. Admitted for generalized fatigue and weakness, found to have urinary tract infection with Klebsiella pneumoniae. Repeat urine culture pending. Small left loculated pleural effusion. The patient is asymptomatic and unable to be drained as the effusion is very small. No further recommendation from Pulmonary. Her thyroid medication dose adjusted. We will continue with current medication. Repeat labs in a.m. We will refer social services technician for discharge planning. Bianca Martines MD [facility] # [id number]
[2018-04-10] MEDS: Sodium Chloride 0.45% 1,000 ML IV SCH (01:58)
--- NOTE | 2018-04-10 07:16 | PN ---
DATE: 04/09/2018 ENDO FOLLOWUP NOTE LOCATION: In room 357. SUBJECTIVE: This is an 78-year-old female with overt hypothyroidism, currently on a much higher dose titration of levothyroxine as given and is being followed closely for metabolic management. Her repeat chemistry showed a BUN of 12, sodium 134, potassium 3.8, chloride 102, CO2 of 22, glucose 88, and creatinine 0.7. Her repeat thyroid studies showed a T4 of 10 with a TSH of 54.50, which is a remarkable improvement over the last 24 to 48 hours as noted. ASSESSMENT: This is an 78-year-old female with overt moderate hypothyroidism noted both historically, clinically and biochemically, most likely related to a subtherapeutic hormonal replacement therapy with underlying autoimmune thyroiditis as noted thereof. PLAN OF MANAGEMENT: We will continue the levothyroxine given as 137 mcg once daily as ordered to allow for dose equilibration since it takes four to six weeks for the improvement and near normalization of the TSH levels accordingly. We will obtain serial chemistries and supplement accordingly as needed. We will also obtain serial thyroid studies and titrate her dose regimen accordingly. We will follow. Rylie Noble MD
[2018-04-10 07:41] LABS: EOS # 0.1 K/uL (0.0-0.7); NEUT # 3.7 K/uL (1.8-7.0)
[2018-04-10 07:46] LABS: BASO % 0.4 % (0.0-2.0); EOS % 1.9 % (0.0-4.0); HEMOGLOBIN 11.8 g/dL (11.0-16.0); LYMPH # 3.2 K/uL (1.0-4.3); LYMPH % 42.5 % (20.0-40.0); MEAN CELL VOLUME 97.2 fL (81.0-99.0); MEAN CORPUSCULAR HEMOGLOBIN 34.6 pg (27.0-31.0); MEAN CORPUSCULAR HGB CONC 35.6 g/dL (33.0-37.0); MEAN PLATELET VOLUME 10.6 fL (7.2-11.7); MONO # 0.4 K/uL (0.0-0.8); MONO % 5.8 % (0.0-10.0); NEUT % 49.4 % (50.0-75.0); RBC 3.4 Mil/uL (3.80-5.20); RED CELL DISTRIBUTION WIDTH 14.2 % (11.5-14.5); WHITE BLOOD COUNT 7.5 K/uL (4.8-10.8)
[2018-04-10 07:53] LABS: ALB/GLOB RATIO 0.8 (1.0-2.1); ALBUMIN 3.4 g/dL (3.5-5.0); ALT/SGPT 60 U/L (9-52); AST/SGOT 93 U/L (14-36); BLOOD UREA NITROGEN 10 mg/dL (7-17); CALCIUM 8.6 mg/dl (8.6-10.4); GFR AFRICAN-AMERICAN > 60; GFR NON-AFRICAN AMERICAN > 60
--- NOTE | 2018-04-10 09:20 | CP.PCM.PN ---
Subjective - Date & Time of Evaluation Date of Evaluation: 04/10/18 Time of Evaluation: 09:20 - Subjective Subjective: Progress note dictated #[id number] Objective - Vital Signs/Intake and Output Vital Signs (last 24 hours): Temp Pulse Resp BP Pulse Ox 98 F 60 20 153/83 H 96 04/10/18 07:28 04/10/18 07:28 04/10/18 07:28 04/10/18 07:28 04/10/18 07:28 Intake and Output: 04/10/18 04/10/18 06:59 18:59 Intake Total 780 Output Total 550 Balance 230 - Medications Medications: Current Medications Amlodipine Besylate (Norvasc) 5 mg PO DAILY [facility] Last Admin: 04/09/18 11:10 Dose: 5 mg Clopidogrel Bisulfate (Plavix) 75 mg PO DAILY [facility] Last Admin: 04/09/18 11:10 Dose: 75 mg Heparin Sodium (Porcine) (Heparin) 5,000 units SC Q12 [facility] Last Admin: 04/09/18 22:13 Dose: 5,000 units Sodium Chloride (Sodium Chloride 0.45%) 1,000 mls @ 60 mls/hr IV .[id number] [facility] Last Admin: 04/10/18 01:58 Dose: 60 mls/hr Aztreonam 500 mg/ Sodium (Chloride) 50 mls @ 100 mls/hr IVPB Q8H [facility] PRN Reason: Protocol Last Admin: 04/10/18 01:55 Dose: 100 mls/hr Levothyroxine Sodium (Levothroid) 137 mcg PO DAILY@0630 [facility] Last Admin: 04/10/18 05:52 Dose: 137 mcg Losartan Potassium (Cozaar) 100 mg PO DAILY [facility] Last Admin: 04/09/18 11:11 Dose: 100 mg Meclizine HCl (Antivert) 25 mg PO DAILY PRN PRN Reason: dizziness Last Admin: 04/09/18 11:17 Dose: 25 mg Memantine (Namenda) 10 mg PO BID [facility] Last Admin: 04/09/18 18:13 Dose: 10 mg Potassium Phos/Sodium Phos (Neutra-Phos) 1 pkt PO QID [facility] Stop: 04/10/18 10:01 Last Admin: 04/09/18 22:14 Dose: 1 pkt Rosuvastatin Calcium (Crestor) 5 mg PO HS [facility] Last Admin: 04/09/18 22:14 Dose: 5 mg Venlafaxine HCl (Effexor Xr) 75 mg PO DAILY [facility] Last Admin: 04/09/18 11:10 Dose: 75 mg - Labs Labs: 04/10/18 07:25 04/10/18 07:25
[2018-04-10] MEDS: Venlafaxine 75 mg ER Cap PO SCH ×2 (10:12→12:21)
[2018-04-10] MEDS: Potassium & Sodium Phosphate PO SCH ×5 (10:14→21:21)
[2018-04-10] MEDS: Sodium Chloride 0.9% 1,000 ML IV SCH (12:56)
--- NOTE | 2018-04-10 16:07 | CP.PCM.PN ---
Subjective - Date & Time of Evaluation Date of Evaluation: 04/10/18 Time of Evaluation: 09:00 - Subjective Subjective: Patient was seen and examined this morning at bedside. Patient had no acute episodes overnight. Patient reports that she feels better than yesterday. Patient says that she only gets lightheaded when she changes position. Patient is found in no acute distress and reports that she does not have any symptoms now. Physical therapist reports that patient's blood pressure drops from 143/80 Patient denies any shortness of breath, headache, chest pain, nausea, vomiting, diarrhea. Patient has no acute complaints. Surgery History: CABG Family History: Patient denies Social History: Patient denies drug use, smoking and alcohol consumption ROS: Constitutional: Patient denies fever and chills Cardiovascular: Patient denies chest pain, palpitations. Patient feels lightheaded when she changes position. Respiratory: Patient denies any cough. Patient has shortness of breath. Gastrointestinal: Patient denies nausea, vomiting, diarrhea. Neurological: AAO X3, normal speech Physical Exam HEENT: Atraumatic, normocephalic, mucuous membranes moist Respiratory: Clear to auscultation bilaterally. No wheezing, rales, rhonchi. No use of accessory muscles. Cardiovascular: +S1/S2, regular rate and rhythm GI: Normal bowel sounds in all 4 quadrants, no tenderness, no distention Extremities: No LE edema Neurological: Alert, awake, oriented X3 Assessment: 78 year old female patient with past medical history of CAD, dementia, diabetes (type II), hypertension, hypercholesterolemia, hyperlipidemia, hypothyroidism and CABG presented to the ED with chief complaint of lightheadeness. Patient has a left small loculated pleural effussion and is asymptomatic. Patient has postural hypotension. 1. Left occulated pleural effussion( small) Status: Acute - Patient is asymptomatic to pleural effusion 2. Urinary Tract Infection Status: - Aztreonam 500 mg in Sodium Chloride 50 mls@ 100 mls/hr IVPB Q8H 3. HTN Status: Chronic - Amlodipine Besylate 5 mg PO Daily - Losartan Potassium 100 mg PO Daily 5. Hyperlipidemia Status : Chronic - Rosuvastatin 5 mg PO HS 4. Hypothyroidism Status: Chronic - Levothyroxine 137 mcg PO Daily Objective - Vital Signs/Intake and Output Vital Signs (last 24 hours): Temp Pulse Resp BP Pulse Ox 98 F 60 20 153/83 H 96 07/19/18 07:28 04/10/18 07:28 04/10/18 07:28 04/10/18 07:28 04/10/18 07:28 Intake and Output: 04/10/18 04/10/18 06:59 18:59 Intake Total 780 Output Total 550 Balance 230 - Medications Medications: Current Medications Amlodipine Besylate (Norvasc) 5 mg PO DAILY [facility] Last Admin: 04/10/18 10:12 Dose: 5 mg Clopidogrel Bisulfate (Plavix) 75 mg PO DAILY [facility] Last Admin: 04/10/18 10:12 Dose: 75 mg Heparin Sodium (Porcine) (Heparin) 5,000 units SC Q12 [facility] Last Admin: 04/10/18 10:13 Dose: 5,000 units Aztreonam 500 mg/ Sodium (Chloride) 50 mls @ 100 mls/hr IVPB Q8H [facility] PRN Reason: Protocol Last Admin: 04/10/18 10:13 Dose: 100 mls/hr Sodium Chloride (Sodium Chloride 0.9%) 1,000 mls @ 60 mls/hr IV .[id number] [facility] Last Admin: 04/10/18 12:56 Dose: 60 mls/hr Levothyroxine Sodium (Levothroid) 137 mcg PO DAILY@0630 [facility] Last Admin: 04/10/18 05:52 Dose: 137 mcg Losartan Potassium (Cozaar) 100 mg PO DAILY [facility] Last Admin: 04/10/18 10:12 Dose: 100 mg Meclizine HCl (Antivert) 25 mg PO DAILY PRN PRN Reason: dizziness Last Admin: 04/10/18 10:12 Dose: 25 mg Memantine (Namenda) 10 mg PO BID [facility] Last Admin: 04/10/18 10:12 Dose: 10 mg Potassium Phos/Sodium Phos (Neutra-Phos) 1 pkt PO QID [facility] Stop: 04/12/18 10:01 Last Admin: 04/10/18 14:30 Dose: 1 pkt Rosuvastatin Calcium (Crestor) 5 mg PO HS [facility] Last Admin: 04/09/18 22:14 Dose: 5 mg Venlafaxine HCl (Effexor Xr) 75 mg PO DAILY [facility] Last Admin: 04/10/18 12:21 Dose: 75 mg - Labs Labs: 04/10/18 07:25 04/10/18 07:25
--- NOTE | 2018-04-10 23:25 | PN ---
DATE: 04/10/2018 SUBJECTIVE: The patient was seen and examined at bedside. The patient offers no new complaints. PHYSICAL EXAMINATION: GENERAL: Elderly female, lying in bed in no acute distress. VITAL SIGNS: Blood pressure 134/78, pulse 58, respirations 20, temperature 98.1 degrees Fahrenheit, O2 sat is 95% on room air. Intake is 1540 mL, output is 550 mL. HEENT: Pupils equal, round and reacting to light and accommodation. Extraocular muscles intact. No icterus. No pallor. NECK: Supple. No JVD. LUNGS: Bilateral vesicular breath sounds. No wheezing. No rhonchi. CVS: S1, S2 present, regular. ABDOMEN: Soft, nontender. Bowel sounds present. No guarding. No rigidity. No rebound tenderness noted. TECHNICAL PROGRAMS MANAGER: Alert, awake, and oriented x3. No focal deficits noted. EXTREMITIES: No edema. Palpable peripheral pulses. MEDICATIONS: Include amlodipine 5 mg daily, Azactam 500 mg IV every 8 hours, Plavix 75 mg daily, heparin 5000 units subcu every 12 hours, Synthroid 137 mcg p.o. daily, Cozaar 100 mg p.o. daily, Antivert 25 mg daily, Namenda 10 mg p.o. b.i.d., Neutra-Phos one pack p.o. four times a day, Crestor 5 mg p.o. at bedtime, normal saline 60 mL an hour, Effexor 75 mg daily. LABORATORY DATA: Labs from this morning: WBC 7.5, hemoglobin 11.8, hematocrit 33.1, platelets 129. Sodium 128, potassium 3.8, chloride 97, bicarbonate 23, BUN 10, creatinine 0.6, glucose 88, calcium 8.6, phosphorus 2.4, magnesium 1.6. Total bilirubin 1.1, AST 93, ALT 60, alkaline phosphatase 531, total protein 7.9, albumin 3.4, globulin 4.5. Thyroglobulin antibody is 172. Repeat urine culture is still pending. ASSESSMENT AND PLAN: Elderly female with history of coronary artery disease, status post coronary artery bypass graft; hypertension; hyperlipidemia; diabetes mellitus; dementia; hypothyroidism. Admitted for Klebsiella pneumoniae urinary tract infection, small left loculated pleural effusion, status post hyperkalemia, abnormal liver function tests, uncontrolled hypothyroidism with new-onset hyponatremia. We will change IV fluids to normal saline, supplement Neutra-Phos for hypophosphatemia. Continue with Azactam. Repeat urine culture is still pending. We will repeat labs in a.m. If repeat urine culture is negative and hyponatremia improves, we will plan discharging the patient to home versus subacute rehab. We will request case management social worker for discharge planning. Bianca Martines MD
--- NOTE | 2018-04-11 01:31 | PN ---
DATE: 04/10/2018 ENDO FOLLOWUP NOTE ROOM: 359 SUBJECTIVE: This is an 78-year-old female with recent constitutional symptoms of progressive dizziness and lightheadedness and evaluated to have overt hypothyroidism and is currently tolerating a higher dose regimen as given thereof. Her recent chemistries showed a BUN of 10, sodium 128, potassium 3.8, chloride 97, CO2 23, glucose 88, and creatinine 0.6. The repeat thyroid studies showed a T4 of 10 with a TSH of 54.5. So at this time, we will continue the levothyroxine given at 137 mcg once daily in the morning as ordered. We will obtain serial thyroid studies and titrate the dose regimen accordingly. It takes 4 to 6 weeks for near normalization of the TSH level as noted. We will obtain serial chemistries and supplement accordingly as needed. She also has ongoing IV antibiotic management for underlying urinary tract infection. We will follow. Rylie Noble MD
[2018-04-11] MEDS: Sodium Chloride 0.9% 1,000 ML IV SCH (05:31)
[2018-04-11 08:40] LABS: ALB/GLOB RATIO 0.8 (1.0-2.1); ALBUMIN 3.6 g/dL (3.5-5.0); ALT/SGPT 51 U/L (9-52); AST/SGOT 76 U/L (14-36); BLOOD UREA NITROGEN 10 mg/dL (7-17); CALCIUM 8.5 mg/dl (8.6-10.4); GFR AFRICAN-AMERICAN > 60; GFR NON-AFRICAN AMERICAN > 60
[2018-04-11 08:56] LABS: T4 12.6 ug/dL (5.5-11.0)
[2018-04-11] MEDS: Venlafaxine 75 mg ER Cap PO SCH (10:16)
[2018-04-11] MEDS: Potassium & Sodium Phosphate PO SCH ×4 (10:17→21:31)
[2018-04-11] MEDS ORDERED: Sodium Chloride 0.9% 1,000 ML IV SCH (10:55)
--- NOTE | 2018-04-11 10:55 | CP.PCM.PN ---
Subjective - Date & Time of Evaluation Date of Evaluation: 04/11/18 Time of Evaluation: 10:55 - Subjective Subjective: Progress note dictated #[id number] Objective - Vital Signs/Intake and Output Vital Signs (last 24 hours): Temp Pulse Resp BP Pulse Ox 97.5 F L 60 20 164/80 H 97 04/11/18 07:42 04/11/18 07:42 04/11/18 07:42 04/11/18 07:42 04/11/18 07:42 Intake and Output: 04/11/18 04/11/18 06:59 18:59 Intake Total 1420 Output Total 450 Balance 970 - Medications Medications: Current Medications Amlodipine Besylate (Norvasc) 5 mg PO DAILY [facility] Last Admin: 04/11/18 10:16 Dose: 5 mg Clopidogrel Bisulfate (Plavix) 75 mg PO DAILY [facility] Last Admin: 04/11/18 10:16 Dose: 75 mg Aztreonam 500 mg/ Sodium (Chloride) 50 mls @ 100 mls/hr IVPB Q8H [facility] PRN Reason: Protocol Last Admin: 04/11/18 10:17 Dose: 100 mls/hr Levothyroxine Sodium (Levothroid) 137 mcg PO DAILY@0630 [facility] Last Admin: 04/11/18 05:57 Dose: 137 mcg Losartan Potassium (Cozaar) 100 mg PO DAILY [facility] Last Admin: 04/11/18 10:16 Dose: 100 mg Meclizine HCl (Antivert) 25 mg PO DAILY PRN PRN Reason: dizziness Last Admin: 04/11/18 10:16 Dose: 25 mg Memantine (Namenda) 10 mg PO BID [facility] Last Admin: 04/11/18 10:16 Dose: 10 mg Potassium Phos/Sodium Phos (Neutra-Phos) 1 pkt PO QID [facility] Stop: 04/12/18 10:01 Last Admin: 04/11/18 10:17 Dose: 1 pkt Rosuvastatin Calcium (Crestor) 5 mg PO HS [facility] Last Admin: 04/10/18 21:20 Dose: 5 mg Venlafaxine HCl (Effexor Xr) 75 mg PO DAILY [facility] Last Admin: 04/11/18 10:16 Dose: 75 mg - Labs Labs: 04/10/18 07:25 04/11/18 08:12
--- NOTE | 2018-04-11 12:59 | CP.PCM.PN ---
Subjective - Date & Time of Evaluation Date of Evaluation: 04/11/18 Time of Evaluation: 08:00 - Subjective Subjective: Patient was seen and examined this morning at bedside. Patient had no acute episodes overnight. Patient reports that she feels lightheaded even when lying in bed without moving.Patient denies any shortness of breath, headache, chest pain, nausea, vomiting, diarrhea. Patient has no other acute complaints. Surgery History: CABG Family History: Patient denies Social History: Patient denies drug use, smoking and alcohol consumption ROS: Constitutional: Patient denies fever and chills. Patient feels lightheaded. Cardiovascular: Patient denies chest pain, palpitations. Respiratory: Patient denies any cough. Patient has shortness of breath. Gastrointestinal: Patient denies nausea, vomiting, diarrhea. Neurological: AAO X3, normal speech Physical Exam HEENT: Atraumatic, normocephalic, mucuous membranes moist Respiratory: Clear to auscultation bilaterally. No wheezing, rales, rhonchi. No use of accessory muscles. Cardiovascular: +S1/S2, regular rate and rhythm GI: Normal bowel sounds in all 4 quadrants, no tenderness, no distention Extremities: No LE edema Neurological: Alert, awake, oriented X3 Assessment: 78 year old female patient with past medical history of CAD, dementia, diabetes (type II), hypertension, hypercholesterolemia, hyperlipidemia, hypothyroidism and CABG presented to the ED with chief complaint of lightheadeness. Patient has a left small loculated pleural effussion and is asymptomatic. Patient has postural hypotension. 1. Left occulated pleural effussion Status: Acute - Repeat chest x-ray, workup for orthostatic hypotension - Patient is asymptomatic to pleural effusion 2. Urinary Tract Infection Status: - Aztreonam 500 mg in Sodium Chloride 50 mls@ 100 mls/hr IVPB Q8H 3. HTN Status: Chronic - Amlodipine Besylate 5 mg PO Daily - Losartan Potassium 100 mg PO Daily 5. Hyperlipidemia Status : Chronic - Rosuvastatin 5 mg PO HS 4. Hypothyroidism Status: Chronic - Levothyroxine 137 mcg PO Daily Objective - Vital Signs/Intake and Output Vital Signs (last 24 hours): Temp Pulse Resp BP Pulse Ox 97.5 F L 60 20 164/80 H 97 04/11/18 07:42 04/11/18 07:42 04/11/18 07:42 04/11/18 07:42 04/11/18 07:42 Intake and Output: 04/11/18 04/11/18 06:59 18:59 Intake Total 1420 Output Total 450 Balance 970 - Medications Medications: Current Medications Amlodipine Besylate (Norvasc) 5 mg PO DAILY [facility] Last Admin: 04/11/18 10:16 Dose: 5 mg Clopidogrel Bisulfate (Plavix) 75 mg PO DAILY [facility] Last Admin: 04/11/18 10:16 Dose: 75 mg Aztreonam 500 mg/ Sodium (Chloride) 50 mls @ 100 mls/hr IVPB Q8H [facility] PRN Reason: Protocol Last Admin: 04/11/18 10:17 Dose: 100 mls/hr Sodium Chloride (Sodium Chloride 0.9%) 1,000 mls @ 100 mls/hr IV .Q10H [facility] Last Admin: 04/11/18 12:43 Dose: Not Given Levothyroxine Sodium (Levothroid) 137 mcg PO DAILY@0630 [facility] Last Admin: 04/11/18 05:57 Dose: 137 mcg Losartan Potassium (Cozaar) 100 mg PO DAILY [facility] Last Admin: 04/11/18 10:16 Dose: 100 mg Meclizine HCl (Antivert) 25 mg PO DAILY PRN PRN Reason: dizziness Last Admin: 04/11/18 10:16 Dose: 25 mg Memantine (Namenda) 10 mg PO BID [facility] Last Admin: 04/11/18 10:16 Dose: 10 mg Potassium Phos/Sodium Phos (Neutra-Phos) 1 pkt PO QID [facility] Stop: 04/12/18 10:01 Last Admin: 04/11/18 10:17 Dose: 1 pkt Rosuvastatin Calcium (Crestor) 5 mg PO HS [facility] Last Admin: 04/10/18 21:20 Dose: 5 mg Venlafaxine HCl (Effexor Xr) 75 mg PO DAILY [facility] Last Admin: 04/11/18 10:16 Dose: 75 mg - Labs Labs: 04/10/18 07:25 04/11/18 08:12
--- NOTE | 2018-04-11 16:43 | CP.PCM.CON ---
History of Present Illness - History of Present Illness History of Present Illness: pt is seen and examined, full consult is dictated #[id number] 1. Hyponatremia , hypotic euvolemic, hyponatremia most likely sec to Siadh sec to drugs, effexor, can't r/o sec to hypothyroidism serum na is dropping with ivf NS, most likely drug induced check urine,lytes, osm, serum osm, serum cortisol, serum uric acid bmp in am Past Patient History - Past Medical History & Family History Past Medical History?: Yes - Past Social History Smoking Status: Never Smoked - CARDIAC Hx Hypercholesterolemia: Yes Hx Hypertension: Yes - PULMONARY Hx Tuberculosis: No - NEUROLOGICAL Hx Alzheimer's Disease: Yes Hx Dementia: Yes Hx Dizziness: Yes - ENDOCRINE/METABOLIC Hx Diabetes Mellitus Type 2: Yes Hx Hypothyroidism: Yes - HEMATOLOGICAL/ONCOLOGICAL Hx Cancer: No Hx Human Immunodeficiency Virus (HIV): No - MUSCULOSKELETAL/RHEUMATOLOGICAL Hx Falls: No - GENITOURINARY/GYNECOLOGICAL Hx Sexually Transmitted Disorders: No - PSYCHIATRIC Hx Depression: Yes Hx Substance Use: No - SURGICAL HISTORY Hx Coronary Artery Bypass Graft: Yes - ANESTHESIA Hx Anesthesia: Yes Hx Anesthesia Reactions: No Meds Allergies/Adverse Reactions: Allergies Allergy/AdvReac Type Severity Reaction Status Date / Time Penicillins Allergy RASH Verified 12/21/16 17:48 - Medications Medications: Current Medications Amlodipine Besylate (Norvasc) 5 mg PO DAILY [facility] Last Admin: 04/11/18 10:16 Dose: 5 mg Clopidogrel Bisulfate (Plavix) 75 mg PO DAILY [facility] Last Admin: 04/11/18 10:16 Dose: 75 mg Aztreonam 500 mg/ Sodium (Chloride) 50 mls @ 100 mls/hr IVPB Q8H [facility] PRN Reason: Protocol Last Admin: 04/11/18 10:17 Dose: 100 mls/hr Sodium Chloride (Sodium Chloride 0.9%) 1,000 mls @ 100 mls/hr IV .Q10H [facility] Last Admin: 04/11/18 12:43 Dose: Not Given Levothyroxine Sodium (Synthroid) 112 mcg PO DAILY@0630 [facility] Losartan Potassium (Cozaar) 100 mg PO DAILY [facility] Last Admin: 04/11/18 10:16 Dose: 100 mg Meclizine HCl (Antivert) 25 mg PO DAILY PRN PRN Reason: dizziness Last Admin: 04/11/18 10:16 Dose: 25 mg Memantine (Namenda) 10 mg PO BID [facility] Last Admin: 04/11/18 10:16 Dose: 10 mg Potassium Phos/Sodium Phos (Neutra-Phos) 1 pkt PO QID [facility] Stop: 04/12/18 10:01 Last Admin: 04/11/18 14:17 Dose: 1 pkt Rosuvastatin Calcium (Crestor) 5 mg PO HS [facility] Last Admin: 04/10/18 21:20 Dose: 5 mg Sodium Chloride (Sodium Chloride Tab) 1 gm PO Q8 [facility] Results - Vital Signs Recent Vital Signs: Last Vital Signs Temp 98.5 F 04/11/18 15:42 Pulse 65 04/11/18 15:42 Resp 20 04/11/18 15:42 BP 127/75 04/11/18 15:42 Pulse Ox 97 04/11/18 15:42 - Labs Result Diagrams: 04/10/18 07:25 04/11/18 08:12 Labs: Laboratory Results - last 24 hr 04/11/18 04/11/18 04/11/18 07:28 08:12 12:05 Sodium 125 L Potassium 4.0 Chloride 95 L Carbon Dioxide 21 L Anion Gap 13 BUN 10 Creatinine 0.6 L Est GFR ( Amer) > 60 Est GFR (Non-Af Amer) > 60 POC Glucose (mg/dL) 72 119 H Random Glucose 77 Calcium 8.5 L Phosphorus 2.6 Total Bilirubin 1.2 AST 76 H ALT 51 Alkaline Phosphatase 532 H Total Protein 8.0 Albumin 3.6 Globulin 4.4 H Albumin/Globulin Ratio 0.8 L Thyroxine (T4) 12.6 H TSH 3rd Generation 41.60 H
[2018-04-11 17:33] LABS: SQUAMOUS EPITHIAL 1 /hpf (0-5); URINE BACTERIA RARE (<OCC); URINE BILIRUBIN NEGATIVE (NEGATIVE); URINE BLOOD NEGATIVE (NEGATIVE); URINE CLARITY Clear (Clear); URINE COLOR Yellow (YELLOW); URINE GLUCOSE (UA) NORMAL (Normal); URINE LEUKOCYTE ESTERASE NEG Leu/uL (Negative); URINE PROTEIN NEGATIVE (NEGATIVE)
--- NOTE | 2018-04-11 17:44 | PN ---
DATE: 04/11/2018 ENDO FOLLOWUP NOTE LOCATION: In room 359. SUBJECTIVE: This is an 78-year-old female, presenting here with dehydration and underlying urinary tract infection with also incidental moderate hypothyroidism and is now being followed closely for metabolic management. Her repeat thyroid studies today showed a T4 or thyroxine of 12.6 mcg with a TSH of 41.60. Her chemistry showed a BUN of 10, sodium 125, potassium 4, chloride 95, CO2 of 21, glucose 77, and creatinine 0.6. Her glucose levels have ranged from 72 to 119 mg per dL. ASSESSMENT AND PLAN: With the higher dosing regimen of levothyroxine given on admission and now with the high thyroxine values, we will modify her levothyroxine dosing to a much lower dose regimen as ordered. We will lower her levothyroxine to 112 mcg daily as ordered to start tomorrow morning as given. With her advanced age and unknown underlying cardiovascular status, it will be more prudent to give her a much lower dosing regimen of the levothyroxine accordingly. We will obtain serial chemistries and supplement accordingly as needed. We will also obtain serial thyroid studies and adjust her dose regimen accordingly. Rylie Noble MD
[2018-04-11 17:54] LABS: OSMOLALITY,URINE 451 mosm/kg (300-1000)
--- NOTE | 2018-04-11 23:02 | PN ---
DATE: 04/11/2018 SUBJECTIVE: The patient was seen and examined at bedside. The patient is feeling much better. Denies any new complaints. All other systems reviewed and were found to be negative. PHYSICAL EXAMINATION: GENERAL: Elderly female, sitting in chair, in no acute distress. VITAL SIGNS: Blood pressure 127/75, pulse 65, respirations 20, temperature 98.5 degrees Fahrenheit, O2 saturations 97% on room air. Intake is 1420, output is 450. HEENT: Pupils equal, round, and reacting to light and accommodation. Extraocular muscles intact. No icterus. No pallor. No oral thrush. No pharyngeal congestion. NECK: Supple. No JVD. LUNGS: Bilateral vesicular breath sounds. No wheezing. No rhonchi. CVS: S1, S2 present, regular. ABDOMEN: Soft, nontender. Bowel sounds present. No guarding. No rigidity. No rebound tenderness noted. MICROBIOLOGY TEACHER: Alert, awake, and oriented x3. No focal deficits noted. EXTREMITIES: No edema. Palpable peripheral pulses. MEDICATIONS: Include Norvasc 5 mg daily, Azactam 500 mg IV every 8 hours, Plavix 75 mg daily, Synthroid 112 mcg daily, losartan 100 mg daily, meclizine 25 mg daily, Namenda 10 mg p.o. b.i.d., Neutra-Phos one pack 4 times daily, Crestor 5 mg p.o. at bedtime, sodium chloride tablet 1 gm p.o. every 8 hours. LABORATORY DATA: Labs from today, sodium 125, potassium 4, chloride 95, bicarb 21, BUN 10, creatinine 0.6, glucose 119, serum osmolality 269. Uric acid is 1.5. Calcium 8.5, phosphorus 2.6. AST 76, ALT 51, alkaline phosphatase 532. Total protein 8, albumin 3.6. TSH 41.6. UA negative. Repeat urine culture, negative growth. ASSESSMENT AND PLAN: Elderly female with history of hypertension, hyperlipidemia, coronary artery disease, hypothyroidism, admitted for urinary tract infection and left loculated pleural effusion, small, on Azactam. Developed hyponatremia, rule out secondary to Effexor, rule out other causes. We will continue with current medication. Here, we will request Renal consult for hyponatremia. Check urine electrolytes, urine osmolality. Discussed with social work coordinator for discharge planning. Repeat labs in a.m. Bianca Martines MD [facility] # [id number]
[2018-04-12 06:49] LABS: BASO % 0.6 % (0.0-2.0); EOS # 0.1 K/uL (0.0-0.7); EOS % 2.2 % (0.0-4.0); HEMOGLOBIN 11.4 g/dL (11.0-16.0); LYMPH # 2.6 K/uL (1.0-4.3); LYMPH % 45.6 % (20.0-40.0); MEAN CELL VOLUME 97.5 fL (81.0-99.0); MEAN CORPUSCULAR HEMOGLOBIN 34.2 pg (27.0-31.0); MEAN PLATELET VOLUME 11.2 fL (7.2-11.7); MONO # 0.4 K/uL (0.0-0.8); MONO % 7.4 % (0.0-10.0); NEUT # 2.5 K/uL (1.8-7.0); NEUT % 44.2 % (50.0-75.0); NRBC % 0.1 % (0.0-2.0); RBC 3.35 Mil/uL (3.80-5.20); RED CELL DISTRIBUTION WIDTH 13.9 % (11.5-14.5); WHITE BLOOD COUNT 5.6 K/uL (4.8-10.8)
[2018-04-12 07:35] LABS: ALB/GLOB RATIO 0.8 (1.0-2.1); ALBUMIN 3.6 g/dL (3.5-5.0); ALT/SGPT 55 U/L (9-52); AST/SGOT 88 U/L (14-36); BLOOD UREA NITROGEN 13 mg/dL (7-17); CALCIUM 9.1 mg/dl (8.6-10.4); GFR AFRICAN-AMERICAN > 60; GFR NON-AFRICAN AMERICAN > 60
--- NOTE | 2018-04-12 08:19 | CON ---
DATE: 04/11/2018 RENAL CONSULTATION LOCATION: The patient is located in room 359, bed A. REQUESTED BY: Dr. Bianca Martines. REASON FOR RENAL CONSULTATION: Hyponatremia for further evaluation. HISTORY OF PRESENT ILLNESS: Mrs. Vazquez is an 78 years old elderly female with a past medical history significant for CAD, dementia, depression, diabetes type 2, hypertension, hyperlipidemia, hypothyroidism, and status post CABG, who was admitted with chief complaints of dizziness and lightheadedness for few days, and the patient is being treated for UTI, dehydration, and loculated pleural effusion initially, and the patient was found to have a worsening serum sodium and low sodium, now renal consult requested for further evaluation. The patient is not in acute distress. Denies any headache. Denies any chest pain. Denies any palpitation. Denies any nausea, vomiting, diarrhea. Denies any dysuria or frequency at this time. Denies any swelling of the legs. PAST MEDICAL HISTORY: Significant with type 2 diabetes, hypertension, hyperlipidemia, hyperthyroidism, CAD, status post CABG, dementia, and depression. PAST SURGICAL HISTORY: Status post CABG. ALLERGIES: ALLERGIC TO PENICILLIN. SOCIAL HISTORY: Denies any smoking, alcohol, or drugs. FAMILY HISTORY: Not significant. REVIEW OF SYSTEMS: Significant for dizziness, lightheaded, and generalized weakness on admission. All other review of systems are reviewed and are negative. PHYSICAL EXAMINATION: VITAL SIGNS: As follows, blood pressure 127/75, pulse 65, respirations 20, temperature 98.5, saturation 97%. Height 5 feet, weight is 107 pounds. GENERAL: Mrs. Vazquez is an 78 years old elderly female, moderately built, moderately nourished, not in acute distress. HEENT: Pupils normal, reactive to light and accommodation. Conjunctivae pink. Sclerae anicteric. Tongue is moist, and trachea is midline. LUNGS: Symmetric on both sides. Bilateral breath sounds present. No crackles. CVS: [place] at the fifth intercostal space of intermediate and midclavicular area. S1, S2 audible. No murmur or gallop. ABDOMEN: Normal in appearance. Soft, tympanic. No guarding. No rigidity. No hepatosplenomegaly. CONCRETE RUBBER: The patient is alert, awake, and oriented x2 to x3. Sensory and motor system is grossly within normal limits. EXTREMITIES: No cyanosis, no clubbing, no edema. Cranial nerves II through XII grossly intact. Deep tendon reflex 2+. CURRENT MEDICATIONS: Include as follows: Effexor and also meclizine 25 mg p.o. daily p.r.n., Azactam 500 mg every 8 hours, Cozaar 100 mg p.o. daily, Crestor 5 mg at bedtime, Namenda 10 mg daily b.i.d., K-Phos and sodium phos which is Neutra-Phos 1 packet p.o. 4 times daily, Norvasc 5 mg daily, Plavix 75 mg daily, and levothyroxine 112 mcg p.o. daily. LABORATORY DATA: Include as follows: As of 04/11/2018, sodium is 125, potassium is 4, chloride 95, CO2 21, BUN 10, creatinine 0.6, glucose 77, calcium 8.5, phosphorus 2.6, total bili 1.2, AST 76, ALT 51, alkaline phosphatase 532, total protein 8, albumin is 3.6, thyroxine is 12.6, TSH is 41.6, serum osmolality is 269, serum uric acid is 1.5. Urinalysis, yellow clear, pH 6, specific gravity 1.011, protein negative, glucose normal, ketones negative, blood negative, nitrites negative, bilirubin is negative, urobilinogen is 4.0, leukocyte esterase negative, wbc less than 1, 1, and urine osmolality is 451, urine sodium is 134. As of 04/10/2018, sodium is 128. As of 04/09/2018, sodium is 134. As of 04/08/2018, sodium 142. As of 04/07/2018, sodium is 139. OTHER REPORTS: CT of the head as of 04/07/2018, no acute intracranial hemorrhage, mild chronic periventricular white matter ischemic changes, moderate central volume loss. CT of the chest as of 04/07/2018, small, partially loculated left lower lobe effusion with subjacent atelectasis. Chest x-ray as of 04/07/2018, lower lobe lung opacity. CT scan can be obtained for further evaluation as clinically warranted. IMPRESSION: In summary, Mrs. Vazquez is an 78 years old elderly female with a history of hypertension, type 2 diabetes, hypothyroidism, hyperlipidemia, coronary artery disease, status post coronary artery bypass graft, dementia, and depression, who was admitted with weakness, dizziness, and lightheadedness on admission, and now with worsening serum sodium, on Effexor. 1. Hyponatremia, most likely secondary to hypotonic-euvolemic hyponatremia. Picture consistent with syndrome of inappropriate antidiuretic hormone secretion secondary to drug induced, most likely Effexor. 2. Hypertension. 3. Diabetes. 4. Loculated left pleural effusion, small. PLAN: Discontinue Effexor and start sodium chloride tablet 1 gm p.o. t.i.d. and also high-protein diet and restrict to fluids to 1 liter per day. Continue to monitor BMP daily and discontinue IV fluids. Discussed with the PMD in rounds, and we will follow with you. Thank you for allowing me to participate in your patient's care, and we will also check serum cortisol in a.m. and urine lytes and serum uric acid levels. Urine osmolality, serum osmolality were done this evening as requested and ordered by me. Bijal Martines MD
--- NOTE | 2018-04-12 09:49 | CP.PCM.PN ---
Subjective - Date & Time of Evaluation Date of Evaluation: 04/12/18 Time of Evaluation: 09:49 - Subjective Subjective: Progress note dictated #[id number] Objective - Vital Signs/Intake and Output Vital Signs (last 24 hours): Temp Pulse Resp BP Pulse Ox 98.4 F 62 20 111/75 98 04/12/18 08:00 04/12/18 08:00 04/12/18 08:00 04/12/18 08:00 04/12/18 08:00 Intake and Output: 04/12/18 04/12/18 06:59 18:59 Intake Total 490 Balance 490 - Medications Medications: Current Medications Amlodipine Besylate (Norvasc) 5 mg PO DAILY [facility] Last Admin: 04/11/18 10:16 Dose: 5 mg Clopidogrel Bisulfate (Plavix) 75 mg PO DAILY [facility] Last Admin: 04/11/18 10:16 Dose: 75 mg Aztreonam 500 mg/ Sodium (Chloride) 50 mls @ 100 mls/hr IVPB Q8H [facility] PRN Reason: Protocol Last Admin: 04/12/18 02:02 Dose: 100 mls/hr Levothyroxine Sodium (Synthroid) 112 mcg PO DAILY@0630 [facility] Losartan Potassium (Cozaar) 100 mg PO DAILY [facility] Last Admin: 04/11/18 10:16 Dose: 100 mg Meclizine HCl (Antivert) 25 mg PO DAILY PRN PRN Reason: dizziness Last Admin: 04/11/18 10:16 Dose: 25 mg Memantine (Namenda) 10 mg PO BID [facility] Last Admin: 04/11/18 17:35 Dose: 10 mg Potassium Phos/Sodium Phos (Neutra-Phos) 1 pkt PO QID [facility] Stop: 04/12/18 10:01 Last Admin: 04/11/18 21:31 Dose: 1 pkt Rosuvastatin Calcium (Crestor) 5 mg PO HS [facility] Last Admin: 04/11/18 21:31 Dose: 5 mg Sodium Chloride (Sodium Chloride Tab) 1 gm PO Q8 [facility] Last Admin: 04/12/18 06:01 Dose: 1 gm - Labs Labs: 04/12/18 06:22 04/12/18 06:22
[2018-04-12] MEDS: Potassium & Sodium Phosphate PO SCH (10:08)
--- NOTE | 2018-04-12 12:49 | PN ---
DATE: 04/12/2018 ENDO FOLLOWUP NOTE LOCATION: Room 359. SUBJECTIVE: This is an 78-year-old female with recent overt hypothyroidism and has improved clinically and metabolically as noticed thereof. She has ongoing IV antibiotic management for underlying urinary tract infection with close metabolic followup because of persistent hyponatremia as noted thereof. Her latest chemistries today showed a BUN of 13, sodium 126, potassium 4, chloride 95, CO2 of 23, glucose 88, and creatinine 0.7. Her liver transaminases are elevated as noted. The latest tyroid studies showed a T4 of 12.6 mcg/dL with a TSH of 41.60 and a serum cortisol of 12.3. So at this time, we will continue the modified lower levothyroxine replacement therapy given as 112 mcg daily before breakfast as ordered. We will obtain serial chemistries and supplement accordingly as needed. We will follow. PLAN OF MANAGEMENT: We will also continue the modified levothyroxine given as 112 mcg daily as ordered. We will obtain serial tyroid studies and titrate her dose regimen as indicated. Rylie Noble MD [facility] # [id number]
--- NOTE | 2018-04-12 14:33 | CP.PCM.PN ---
Subjective - Date & Time of Evaluation Date of Evaluation: 04/12/18 Time of Evaluation: 14:33 - Subjective Subjective: pt is seen and examined, follow up consult is dictated #[id number] Objective - Vital Signs/Intake and Output Vital Signs (last 24 hours): Temp Pulse Resp BP Pulse Ox 98.4 F 62 20 111/75 98 04/12/18 08:00 04/12/18 08:00 04/12/18 08:00 04/12/18 08:00 04/12/18 08:00 Intake and Output: 04/12/18 04/12/18 06:59 18:59 Intake Total 490 Balance 490 - Medications Medications: Current Medications Amlodipine Besylate (Norvasc) 5 mg PO DAILY [facility] Last Admin: 04/12/18 10:08 Dose: 5 mg Clopidogrel Bisulfate (Plavix) 75 mg PO DAILY [facility] Last Admin: 04/12/18 10:07 Dose: 75 mg Aztreonam 500 mg/ Sodium (Chloride) 50 mls @ 100 mls/hr IVPB Q8H [facility] PRN Reason: Protocol Last Admin: 04/12/18 10:08 Dose: 100 mls/hr Levothyroxine Sodium (Synthroid) 112 mcg PO DAILY@0630 [facility] Losartan Potassium (Cozaar) 100 mg PO DAILY [facility] Last Admin: 04/12/18 10:07 Dose: 100 mg Meclizine HCl (Antivert) 25 mg PO DAILY PRN PRN Reason: dizziness Last Admin: 04/11/18 10:16 Dose: 25 mg Memantine (Namenda) 10 mg PO BID [facility] Last Admin: 04/12/18 10:08 Dose: 10 mg Rosuvastatin Calcium (Crestor) 5 mg PO HS [facility] Last Admin: 04/11/18 21:31 Dose: 5 mg Sodium Chloride (Sodium Chloride Tab) 1 gm PO Q8 [facility] Last Admin: 04/12/18 13:38 Dose: 1 gm - Labs Labs: 04/12/18 06:22 04/12/18 06:22
--- NOTE | 2018-04-12 15:12 | PN ---
DATE: 04/12/2018 SUBJECTIVE: The patient is seen and examined at bedside. The patient offers no new complaints. Denies any headache or dizziness. Denies any chest pain, shortness of breath, or wheezing. All other systems reviewed and was found to be negative. PHYSICAL EXAMINATION: GENERAL: Elderly female, lying in bed, in no acute distress. VITAL SIGNS: Blood pressure 111/75, pulse 65, respirations 20, temperature 98.4 degrees Fahrenheit, O2 sat is 98% on room air. HEENT: Pupils equal, round and reacting to light and accommodation. Extraocular muscles are intact. No icterus. No pallor. No oral thrush. No pharyngeal congestion. NECK: Supple. No JVD. LUNGS: Bilateral vesicular breath sounds. No wheezing. No rhonchi. CVS: S1 and S2 are present, regular. ABDOMEN: Soft and nontender. Bowel sounds are present. No guarding. No rigidity. No rebound tenderness noted. AESTHETICIAN: Alert, awake, and oriented x3. No focal deficits noted. EXTREMITIES: No edema. Palpable peripheral pulses. MEDICATIONS: Include Norvasc 5 mg daily, Azactam 500 mg IV every 8 hours, Plavix 75 mg daily, Synthroid 112 mcg p.o. daily, Cozaar 100 mg daily, meclizine 25 mg daily, Namenda 10 mg p.o. b.i.d., Crestor 5 mg p.o. h.s., and sodium chloride tablet 1 gm p.o. every 8 hours. LABORATORY DATA: Labs from this morning, WBC 5.6, hemoglobin 11.4, hematocrit 32.6, and platelets 136. Sodium 176, potassium 4, chloride 95, bicarbonate 23, BUN 13, creatinine 0.7, glucose 88, calcium 9.1, AST 88, ALT 55, alkaline phosphatase 508, total protein 7.9, albumin 12.3, and TSH 41.6. ASSESSMENT AND PLAN: Elderly female with history of dementia, hypertension, coronary artery disease, hyperlipidemia, hypothyroidism, admitted for urinary tract infection and left small loculated pleural effusion, on Azactam and the patient developed hyponatremia, questionable etiology, rule out from medication intravenous fluids have been stopped, evaluated by Renal, started on sodium chloride tablet. Her sodium is still at 126. We will monitor the patient closely ,continue with current medications, and we will repeat labs in a.m. Bianca Martines MD [facility] # [id number]
--- NOTE | 2018-04-13 02:48 | PN ---
DATE: 04/12/2018 FOLLOWUP RENAL CONSULTATION LOCATION: The patient is located in room 359, bed A. Requested by Dr. Bianca Martines. REASON FOR FOLLOW-UP: Hyponatremia, for further evaluation. HISTORY OF PRESENT ILLNESS: Mrs. Vazquez is about 78-year-old elderly, very pleasant, female with a history of type 2 diabetes, hypertension, hyperlipidemia, hypothyroidism, CAD, dementia, was admitted with chief complaints of dizziness, lightheadedness, and generalized weakness. The patient is being treated for possible UTI and dehydration initially. Now, the patient was found to have worsening hyponatremia since the patient was hospitalized and initial consult was requested for hyponatremia evaluation. Her picture is consistent with hypotonic euvolemic hyponatremia, most likely secondary to drugs secondary to Effexor, cannot rule out hypothyroidism. Effexor was discontinued and also IV fluids discontinued, and started on sodium chloride tablets. The patient is feeling better slightly. No chest pain or palpitation. No fever. No cough. No abdominal pain. No nausea, vomiting, or diarrhea. PHYSICAL EXAMINATION: VITAL SIGNS: As follows; blood pressure 111/75, pulse 62, respirations about 20, temperature 98.4, saturation 98%. Height 5 feet, weight is 107 pounds. GENERAL: Mrs. Vazquez is an 78-year-old elderly female, thin built, not in acute distress. HEENT: Pupils are normal, reactive to light and accommodation. Conjunctivae pink. Sclerae anicteric. Tongue is moist. NECK: Trachea is midline. LUNGS: Symmetric on both sides. Bilateral breath sounds present. Clear to auscultation. CVS: [place] at the fifth intercostal space, midclavicular line. S1, S2, audible. No murmur or gallop. ABDOMEN: Normal in appearance, soft, tympanic. No guarding. No rigidity. No hepatosplenomegaly. FISHER TRAMMEL NET: The patient is alert, awake, and oriented x2 to 3. Sensory and motor system are grossly within normal limits. EXTREMITIES: No cyanosis, no clubbing, no edema. CURRENT MEDICATIONS: Include as follows; meclizine 25 mg p.o. daily, Azactam 500 mg every 8 hours, losartan 100 mg p.o. daily, Crestor 5 mg p.o. at bedtime, Namenda 10 mg p.o. b.i.d., Norvasc 5 mg daily, Plavix 75 mg daily, sodium chloride tablet 1 gm p.o. every 8 hours, levothyroxine 112 mcg p.o. daily. LABORATORY DATA: Lab data include as follows; as of 04/12/2018, WBC 5.6, hemoglobin 11.4, hematocrit is 32.6, platelets 136. Sodium 126, potassium is 4, chloride is 95, CO2 23, BUN 13, creatinine 0.7, glucose 88, and calcium is 9.1. Total bili 0.9, AST 88, ALT 55, alkaline phosphatase is 508, total protein 7.9, albumin is 3.6, and serum cortisol level is 12.3. Urinalysis as of 04/11/2018; yellow, clear, pH 6, specific gravity 1.011, protein negative, glucose normal, ketones negative, blood negative, nitrites negative, bilirubin negative, urobilinogen is 4, and leukocyte esterase is negative, wbc less than 1, rbc 1, bacteria rare, urine osmolality 451, urine sodium 134. IMPRESSION: In summary, Mrs. Vazquez is an 78-year-old elderly female with a history of hypertension, diabetes, hyperlipidemia, hypothyroidism, dementia, was admitted with generalized weakness and with worsening serum sodium since the admission, on Effexor. 1. Hyponatremia, most likely secondary to syndrome of inappropriate antidiuretic hormone secretion secondary to drug-induced Effexor, cannot rule out secondary to hypothyroidism. 2. Hypertension. Blood pressure is stable, slightly low. We will hold the blood pressure medicine, Norvasc, if blood pressure is less than 120. Continue sodium chloride tablets. 3. Hypothyroidism. Continue Synthroid and titrate as needed. Repeat BMP in a.m., and also continue sodium chloride tablet 1 gm p.o. every 8 hours. We will follow with you. Thank you for allowing me to participate in your patient's care. Bijal Martines MD
[2018-04-13] MEDS: Levothyroxine 112 MCG TAB PO SCH (05:59)
[2018-04-13 08:26] VITALS: RESP 20
[2018-04-13 09:06] LABS: BASO % 0.7 % (0.0-2.0); EOS # 0.2 K/uL (0.0-0.7); EOS % 2.7 % (0.0-4.0); HEMOGLOBIN 11.7 g/dL (11.0-16.0); LYMPH # 2.8 K/uL (1.0-4.3); LYMPH % 47.2 % (20.0-40.0); MEAN CORPUSCULAR HEMOGLOBIN 34.2 pg (27.0-31.0); MEAN CORPUSCULAR HGB CONC 34.9 g/dL (33.0-37.0); MEAN PLATELET VOLUME 11.2 fL (7.2-11.7); MONO # 0.5 K/uL (0.0-0.8); NEUT # 2.4 K/uL (1.8-7.0); NEUT % 41.4 % (50.0-75.0); NRBC % 0.1 % (0.0-2.0); RBC 3.41 Mil/uL (3.80-5.20); RED CELL DISTRIBUTION WIDTH 14.2 % (11.5-14.5); WHITE BLOOD COUNT 5.9 K/uL (4.8-10.8)
[2018-04-13 09:17] LABS: ALB/GLOB RATIO 0.8 (1.0-2.1); ALBUMIN 3.5 g/dL (3.5-5.0); ALT/SGPT 61 U/L (9-52); AST/SGOT 91 U/L (14-36); BLOOD UREA NITROGEN 17 mg/dL (7-17); CALCIUM 9.4 mg/dl (8.6-10.4); GFR AFRICAN-AMERICAN > 60; GFR NON-AFRICAN AMERICAN > 60
[2018-04-13 09:34] LABS: T4 12.7 ug/dL (5.5-11.0)
--- NOTE | 2018-04-13 14:14 | CP.PCM.PN ---
Subjective - Date & Time of Evaluation Date of Evaluation: 04/13/18 Time of Evaluation: 14:13 - Subjective Subjective: Progress note dictated #[id number] Objective - Vital Signs/Intake and Output Vital Signs (last 24 hours): Temp Pulse Resp BP Pulse Ox 97.5 F L 57 L 20 111/68 98 04/13/18 08:25 04/13/18 08:25 04/13/18 08:25 04/13/18 08:25 04/13/18 08:25 Intake and Output: 04/13/18 04/13/18 06:59 18:59 Intake Total 180 Balance 180 - Medications Medications: Current Medications Amlodipine Besylate (Norvasc) 5 mg PO DAILY [facility] Last Admin: 04/13/18 10:02 Dose: 5 mg Clopidogrel Bisulfate (Plavix) 75 mg PO DAILY [facility] Last Admin: 04/13/18 10:02 Dose: 75 mg Levothyroxine Sodium (Synthroid) 112 mcg PO DAILY@0630 [facility] Last Admin: 04/13/18 05:59 Dose: 112 mcg Losartan Potassium (Cozaar) 100 mg PO DAILY [facility] Last Admin: 04/13/18 10:02 Dose: 100 mg Meclizine HCl (Antivert) 25 mg PO DAILY PRN PRN Reason: dizziness Last Admin: 04/11/18 10:16 Dose: 25 mg Memantine (Namenda) 10 mg PO BID [facility] Last Admin: 04/13/18 10:02 Dose: 10 mg Rosuvastatin Calcium (Crestor) 5 mg PO HS [facility] Last Admin: 04/12/18 21:30 Dose: 5 mg Sodium Chloride (Sodium Chloride Tab) 1 gm PO Q8 [facility] Last Admin: 04/13/18 13:34 Dose: 1 gm - Labs Labs: 04/13/18 08:52 04/13/18 08:52
--- NOTE | 2018-04-13 15:15 | CP.PCM.PN ---
Subjective - Date & Time of Evaluation Date of Evaluation: 04/13/18 Time of Evaluation: 15:15 - Subjective Subjective: pt is seen and examined, follow up consult is dictated #[id number] Objective - Vital Signs/Intake and Output Vital Signs (last 24 hours): Temp Pulse Resp BP Pulse Ox 97.5 F L 57 L 20 111/68 98 04/13/18 08:25 04/13/18 08:25 04/13/18 08:25 04/13/18 08:25 04/13/18 08:25 Intake and Output: 04/13/18 04/13/18 06:59 18:59 Intake Total 180 350 Balance 180 350 - Medications Medications: Current Medications Amlodipine Besylate (Norvasc) 5 mg PO DAILY [facility] Last Admin: 04/13/18 10:02 Dose: 5 mg Clopidogrel Bisulfate (Plavix) 75 mg PO DAILY [facility] Last Admin: 04/13/18 10:02 Dose: 75 mg Levothyroxine Sodium (Synthroid) 112 mcg PO DAILY@0630 [facility] Last Admin: 04/13/18 05:59 Dose: 112 mcg Losartan Potassium (Cozaar) 100 mg PO DAILY [facility] Last Admin: 04/13/18 10:02 Dose: 100 mg Meclizine HCl (Antivert) 25 mg PO DAILY PRN PRN Reason: dizziness Last Admin: 04/11/18 10:16 Dose: 25 mg Memantine (Namenda) 10 mg PO BID [facility] Last Admin: 04/13/18 10:02 Dose: 10 mg Rosuvastatin Calcium (Crestor) 5 mg PO HS [facility] Last Admin: 04/12/18 21:30 Dose: 5 mg Sodium Chloride (Sodium Chloride Tab) 1 gm PO Q8 [facility] Last Admin: 04/13/18 13:34 Dose: 1 gm - Labs Labs: 04/13/18 08:52 04/13/18 08:52
--- NOTE | 2018-04-13 15:57 | PN ---
DATE: 04/13/2018 ENDO FOLLOWUP NOTE LOCATION: In room 359. SUBJECTIVE: This is an 78-year-old female with ongoing IV antibiotic management for urinary tract infection, bacteremia and also now being followed closely for metabolic management. LABORATORY DATA: Her repeat chemistries today showed a BUN of 17, sodium 130, potassium 4.2, chloride 95, CO2 of 27, glucose 86, and creatinine 0.7. Her recent thyroid studies showed a T4 of 12.7 with a TSH of 39.40, which is improving accordingly with the levothyroxine replacement therapy as given. Her free T4 is 1.28 with a serum cortisol of 12.3 mcg/dL. ASSESSMENT: This is an 78-year-old female with overt hypothyroidism noted historically, clinically and biochemically, most likely related to underlying autoimmune thyroiditis. PLAN OF MANAGEMENT: As discussed, we will continue the modified and lower levothyroxine replacement therapy as given at a dose of 112 mcg daily before breakfast as ordered. We will titrate incrementally as indicated to optimize metabolic control. We will obtain serial thyroid studies and titrate her dose regimen accordingly. We will follow. Rylie Noble MD
--- NOTE | 2018-04-14 01:00 | PN ---
DATE: 04/13/2018 SUBJECTIVE: The patient was seen and examined at bedside. The patient offers no new complaints. Denies any pain or dizziness. As per the SLEEP LAB TECHNICIAN, the patient has not been eating well, drinking only Ensure. PHYSICAL EXAMINATION: GENERAL: Elderly female, lying in bed, in no acute distress. VITAL SIGNS: Blood pressure 134/81, pulse 59, respirations 20, temperature 98.9 degrees Fahrenheit, O2 sat is 96% on room air. HEENT: Pupils equal, round and reacting to light and accommodation. Extraocular muscles intact. No icterus. No pallor. No oral thrush. No pharyngeal congestion. NECK: Supple. No JVD. LUNGS: Bilateral vesicular breath sounds. No wheezing. No rhonchi. CVS: S1, S2 present, regular. ABDOMEN: Soft, nontender. Bowel sounds present. No guarding. No rigidity. No rebound tenderness noted. CHAIN MAKER MACHINE: Alert, awake, oriented x3. No focal deficits noted. EXTREMITIES: No edema. Palpable peripheral pulses. MEDICATIONS: Include Norvasc 5 mg daily, Plavix 75 mg daily, Synthroid 112 mcg daily, Cozaar 100 mg daily, Antivert 25 mg daily, Namenda 10 mg b.i.d., Crestor 5 mg p.o. at bedtime, sodium chloride tablet 1 gm p.o. every 8 hours. LABORATORY DATA: Labs from this morning: WBC 5.9, hemoglobin 11.7, hematocrit 33.4, platelets 150. Sodium 130, potassium 4.2, chloride 95, bicarb 27, BUN 17, creatinine 0.7, glucose 86, calcium 9.4. Total bilirubin 0.9, AST 91, ALT 61, alkaline phosphatase 475, total protein 7.9, albumin 3.5. TSH is 39.4. ASSESSMENT AND PLAN: Elderly female with history of hypertension, hyperlipidemia, dementia, hypothyroidism, coronary artery disease. Admitted for urinary tract infection, left small loculated pleural effusion, found to have hyponatremia. Her sodium level is improving. We will continue with current medications. Repeat labs in a.m. child and family services specialist for discharge planning. Bianca Martines MD [facility] # [id number]
--- NOTE | 2018-04-14 03:49 | PN ---
DATE: 04/13/2018 RENAL FOLLOWUP CONSULTATION LOCATION: The patient is located in room 359, bed A. REQUESTED BY: Bianca Martines MD SUBJECTIVE: Mrs. Vazquez is an 78-year-old elderly female with a past medical history significant for coronary artery disease, dementia, depression, diabetes, hypertension, hyperlipidemia, hypothyroidism who was admitted with chief complaints of dizziness and lightheadedness. The patient is being treated for possible UTI, dizziness, dehydration. Hospital course complicated by hyponatremia on Effexor. The Effexor was discontinued and started on sodium chloride tablets. 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 Serum sodium is gradually improving. The patient is feeling better, not in acute distress. Denies any headache or dizziness. Denies any chest pain or palpitations. Denies any fever or cough. No abdominal pain. No nausea, vomiting, or diarrhea. PHYSICAL EXAMINATION: VITAL SIGNS: As follows. Blood pressure 111/68, pulse 57, respirations 20, temperature 97.5, and saturation 98%. Height 5 feet. Weight is 107 pounds. GENERAL: Mrs. Vazquez is an 78-year-old elderly female, moderately built, moderately nourished, not in acute distress. HEENT: Pupils are normal and reactive to light and accommodation. Conjunctivae are pink. Sclerae are anicteric. Tongue is moist. Trachea is midline. LUNGS: Symmetric on both sides. Bilateral breath sounds present. Clear to auscultation. CVS: [place] at the fifth intercostal space, midclavicular line. S1 and S2 audible. No murmur or gallop. ABDOMEN: Normal in appearance. Soft and tympanic. No guarding. No rigidity. No hepatosplenomegaly. BELLPERSON: The patient is alert, awake, and oriented x2-3. Sensory and motor system is grossly within normal limits. EXTREMITIES: No cyanosis. No clubbing. No edema. CURRENT MEDICATIONS: Include as follows: Meclizine 25 mg p.o. daily, losartan 100 mg daily, Crestor 5 mg at bedtime, Namenda 10 mg b.i.d., Norvasc 5 mg daily, Plavix 75 mg daily, sodium chloride tablet 1 gm p.o. every 8 hours, and levothyroxine 112 mcg p.o. daily. LABORATORY DATA: Current lab data as follows as of 04/13/2018: WBC 5.9, hemoglobin 11.7, hematocrit is 33.4, and platelets . Sodium is 130, potassium is 4.2, chloride is 95, CO2 of 27, BUN 17, creatinine 0.7, glucose 86, calcium is 9.4. Total valentin 0.9, AST 91, ALT 61, alkaline phosphatase 475, total protein 7.9, and albumin is 3.5. IMPRESSION: In summary, Mrs. Vazquez is an 78-year-old elderly female with hypertension, diabetes, hyperlipemia, hypothyroidism, depression, dementia, with hyponatremia, off Effexor. 1. Hyponatremia, most likely secondary to syndrome of inappropriate secretion of antidiuretic hormone secondary to drug induced Effexor, cannot rule out secondary to hypothyroidism. 2. Hypothyroidism. Continue Synthroid 112 mcg daily. Continue sodium chloride tablet 1 gm p.o. every 8 hours. 3. Hypertension. Blood pressure is stable. Continue losartan 100 mg p.o. daily. Repeat BMP in the a.m. Encourage p.o. intake and high-protein diet. 4. The patient needs antidepressant. Continue different medication and stop the Effexor. We will follow with you. Thank you for allowing me to participate in your patient's care. Bijal Martines MD
[2018-04-14] MEDS: Levothyroxine 112 MCG TAB PO SCH (05:32)
[2018-04-14 07:28] LABS: ALB/GLOB RATIO 0.9 (1.0-2.1); ALBUMIN 3.4 g/dL (3.5-5.0); ALT/SGPT 58 U/L (9-52); AST/SGOT 79 U/L (14-36); BLOOD UREA NITROGEN 19 mg/dL (7-17); CALCIUM 9.2 mg/dl (8.6-10.4); GFR AFRICAN-AMERICAN > 60; GFR NON-AFRICAN AMERICAN > 60
[2018-04-14 07:29] LABS: BASO # 0.1 K/uL (0.0-0.2); BASO % 0.9 % (0.0-2.0); EOS # 0.2 K/uL (0.0-0.7); EOS % 2.7 % (0.0-4.0); HEMOGLOBIN 11.2 g/dL (11.0-16.0); LYMPH % 46.5 % (20.0-40.0); MEAN CELL VOLUME 97.5 fL (81.0-99.0); MEAN CORPUSCULAR HEMOGLOBIN 35.1 pg (27.0-31.0); MEAN PLATELET VOLUME 10.7 fL (7.2-11.7); MONO # 0.6 K/uL (0.0-0.8); MONO % 8.9 % (0.0-10.0); NEUT # 2.6 K/uL (1.8-7.0); RBC 3.2 Mil/uL (3.80-5.20); RED CELL DISTRIBUTION WIDTH 14.4 % (11.5-14.5); WHITE BLOOD COUNT 6.4 K/uL (4.8-10.8)
[2018-04-14] MEDS: Aztreonam 1 GM in Sodium Chloride 0.9% 100 ML IVPB SCH ×2 (10:27→17:46)
--- NOTE | 2018-04-14 11:04 | CP.PCM.PN ---
Subjective - Date & Time of Evaluation Date of Evaluation: 04/14/18 Time of Evaluation: 11:04 - Subjective Subjective: Progress note dictated #[id number] Objective - Vital Signs/Intake and Output Vital Signs (last 24 hours): Temp Pulse Resp BP Pulse Ox 98.5 F 60 20 114/70 97 04/14/18 07:00 04/14/18 07:00 04/14/18 07:00 04/14/18 07:00 04/14/18 07:00 - Medications Medications: Current Medications Amlodipine Besylate (Norvasc) 5 mg PO DAILY [facility] Last Admin: 04/14/18 09:24 Dose: 5 mg Clopidogrel Bisulfate (Plavix) 75 mg PO DAILY [facility] Last Admin: 04/14/18 09:24 Dose: 75 mg Aztreonam 1 gm/ Sodium (Chloride) 100 mls @ 100 mls/hr IVPB Q8H [facility] PRN Reason: Protocol Levothyroxine Sodium (Synthroid) 112 mcg PO DAILY@0630 [facility] Last Admin: 04/14/18 05:32 Dose: 112 mcg Losartan Potassium (Cozaar) 100 mg PO DAILY [facility] Last Admin: 04/14/18 09:24 Dose: 100 mg Meclizine HCl (Antivert) 25 mg PO DAILY PRN PRN Reason: dizziness Last Admin: 04/11/18 10:16 Dose: 25 mg Memantine (Namenda) 10 mg PO BID [facility] Last Admin: 04/14/18 09:24 Dose: 10 mg Rosuvastatin Calcium (Crestor) 5 mg PO HS [facility] Last Admin: 04/13/18 21:30 Dose: 5 mg Sodium Chloride (Sodium Chloride Tab) 1 gm PO Q8 [facility] Last Admin: 04/14/18 05:32 Dose: 1 gm - Labs Labs: 04/14/18 06:59 04/14/18 06:59
[2018-04-14] MEDS ORDERED: Sodium Chloride 0.9% 250 ML IV ONE (13:08)
[2018-04-14] MEDS: Sodium Chloride 0.9% 1,000 ML IV SCH (13:27)
--- NOTE | 2018-04-14 16:19 | CP.PCM.PN ---
Subjective - Date & Time of Evaluation Date of Evaluation: 04/14/18 Time of Evaluation: 11:25 - Subjective Subjective: Patient was seen and examined this morning at bedside. Patient had no acute events overnight. Patient reports that she is feeling better. 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 Patient is currently being treated for hyponatremia. Patient denies any shortness of breath, headache, chest pain, nausea, vomiting, diarrhea. Patient has no acute complaints. Surgery History: CABG Family History: Patient denies Social History: Patient denies drug use, smoking and alcohol consumption ROS: Constitutional: Patient denies fever and chills. Cardiovascular: Patient denies chest pain, palpitations. Respiratory: Patient denies any cough, shortness of breath Gastrointestinal: Patient denies nausea, vomiting, diarrhea. Neurological: AAO X3, normal speech Physical Exam HEENT: Atraumatic, normocephalic, mucuous membranes moist Respiratory: Clear to auscultation bilaterally. No wheezing, rales, rhonchi. No use of accessory muscles. Cardiovascular: +S1/S2, regular rate and rhythm GI: Normal bowel sounds in all 4 quadrants, no tenderness, no distention Extremities: No LE edema Neurological: Alert, awake, oriented X3 Assessment: 78 year old female patient with past medical history of CAD, dementia, diabetes (type II), hypertension, hypercholesterolemia, hyperlipidemia, hypothyroidism and CABG presented to the ED with chief complaint of lightheadeness. Patient has a left small loculated pleural effussion and is asymptomatic. Patient has postural hypotension. 1. Left occulated pleural effussion Status: Ac - Patient is asymptomatic to pleural effusion 2. Hyponatremia Status: Acute - Sodium Chloride 1gm PO Q8 3. HTN Status: Chronic - Amlodipine Besylate 5 mg PO Daily - Losartan Potassium 100 mg PO Daily Objective - Vital Signs/Intake and Output Vital Signs (last 24 hours): Temp Pulse Resp BP Pulse Ox 98.0 F 61 20 114/66 96 04/14/18 16:11 04/14/18 16:11 04/14/18 16:11 04/14/18 16:11 04/14/18 16:11 Intake and Output: 04/14/18 04/14/18 06:59 18:59 Intake Total 240 Balance 240 - Medications Medications: Current Medications Amlodipine Besylate (Norvasc) 5 mg PO DAILY [facility] Last Admin: 04/14/18 09:24 Dose: 5 mg Clopidogrel Bisulfate (Plavix) 75 mg PO DAILY [facility] Last Admin: 04/14/18 09:24 Dose: 75 mg Aztreonam 1 gm/ Sodium (Chloride) 100 mls @ 100 mls/hr IVPB Q8H [facility] PRN Reason: Protocol Last Admin: 04/14/18 10:27 Dose: 100 mls/hr Sodium Chloride (Sodium Chloride 0.9%) 1,000 mls @ 70 mls/hr IV .[id number] [facility] Last Admin: 04/14/18 13:27 Dose: 70 mls/hr Levothyroxine Sodium (Synthroid) 112 mcg PO DAILY@0630 [facility] Last Admin: 04/14/18 05:32 Dose: 112 mcg Losartan Potassium (Cozaar) 100 mg PO DAILY [facility] Last Admin: 04/14/18 09:24 Dose: 100 mg Meclizine HCl (Antivert) 25 mg PO DAILY PRN PRN Reason: dizziness Last Admin: 04/11/18 10:16 Dose: 25 mg Memantine (Namenda) 10 mg PO BID [facility] Last Admin: 04/14/18 09:24 Dose: 10 mg Rosuvastatin Calcium (Crestor) 5 mg PO HS [facility] Last Admin: 04/13/18 21:30 Dose: 5 mg Sodium Chloride (Sodium Chloride Tab) 1 gm PO Q8 [facility] Last Admin: 04/14/18 14:20 Dose: 1 gm - Labs Labs: 04/14/18 06:59 04/14/18 06:59
--- NOTE | 2018-04-14 16:19 | PN ---
DATE: 04/14/2018 ENDO FOLLOWUP NOTE LOCATION: In room 359. SUBJECTIVE: This is an 78-year-old female with recent overt hypothyroidism, currently tolerating a modified and lower dosing of the levothyroxine medications as given and is now also being followed closely for metabolic management. LABORATORY DATA: Her latest chemistries today showed a BUN of 19, sodium 135, potassium 4.4, chloride 100, CO2 of 28, glucose 84, and creatinine 0.7. Her latest thyroid study showed a T4 of 12.7 with a free T4 of 1.28 and a TSH of 39.40. ASSESSMENT AND PLAN: So at this time, we will continue the modified and lower dosing of the levothyroxine medications given as 112 mcg once daily before breakfast as ordered. It takes four to six weeks for the near normalization of the thyroid stimulating hormone values noted, but they are trending downwards as noted otherwise. We will obtain serial chemistries and supplement accordingly as needed. We will also obtain serial thyroid studies and titrate her dose regimen accordingly. We are still awaiting the thyroid antibodies, which will confirm and/or indicate the presence of underlying thyroid autoimmunity. We will follow. Rylie Noble MD
--- NOTE | 2018-04-14 18:15 | CP.PCM.PN ---
Subjective - Date & Time of Evaluation Date of Evaluation: 04/14/18 Time of Evaluation: 18:14 - Subjective Subjective: pt is seen and examined, follow up consult is dictated #[id number] check bmp in am, agree with ivf Objective - Vital Signs/Intake and Output Vital Signs (last 24 hours): Temp Pulse Resp BP Pulse Ox 98.0 F 61 20 114/66 96 04/14/18 16:11 04/14/18 16:11 04/14/18 16:11 04/14/18 16:11 04/14/18 16:11 Intake and Output: 04/14/18 04/14/18 06:59 18:59 Intake Total 240 Balance 240 - Medications Medications: Current Medications Amlodipine Besylate (Norvasc) 5 mg PO DAILY [facility] Last Admin: 04/14/18 09:24 Dose: 5 mg Clopidogrel Bisulfate (Plavix) 75 mg PO DAILY [facility] Last Admin: 04/14/18 09:24 Dose: 75 mg Aztreonam 1 gm/ Sodium (Chloride) 100 mls @ 100 mls/hr IVPB Q8H [facility] PRN Reason: Protocol Last Admin: 04/14/18 17:46 Dose: 100 mls/hr Sodium Chloride (Sodium Chloride 0.9%) 1,000 mls @ 70 mls/hr IV .[id number] [facility] Last Admin: 04/14/18 13:27 Dose: 70 mls/hr Levothyroxine Sodium (Synthroid) 112 mcg PO DAILY@0630 [facility] Last Admin: 04/14/18 05:32 Dose: 112 mcg Losartan Potassium (Cozaar) 100 mg PO DAILY [facility] Last Admin: 04/14/18 09:24 Dose: 100 mg Meclizine HCl (Antivert) 25 mg PO DAILY PRN PRN Reason: dizziness Last Admin: 04/11/18 10:16 Dose: 25 mg Memantine (Namenda) 10 mg PO BID [facility] Last Admin: 04/14/18 17:46 Dose: 10 mg Rosuvastatin Calcium (Crestor) 5 mg PO HS [facility] Last Admin: 04/13/18 21:30 Dose: 5 mg Sodium Chloride (Sodium Chloride Tab) 1 gm PO Q8 [facility] Last Admin: 04/14/18 14:20 Dose: 1 gm - Labs Labs: 04/14/18 06:59 04/14/18 06:59
[2018-04-15] MEDS: Aztreonam 1 GM in Sodium Chloride 0.9% 100 ML IVPB SCH ×3 (02:25→17:14)
--- NOTE | 2018-04-15 02:39 | PN ---
DATE: 04/14/2018 SUBJECTIVE: The patient is seen and examined at bedside. The patient is complaining of dizziness upon getting up and walking. Denies any other complaints. PHYSICAL EXAMINATION: GENERAL: Elderly female lying in bed in no acute distress. VITAL SIGNS: Blood pressure 114/70 lying down, sitting is 108/66, standing up is 100/64, temperature 98 degrees Fahrenheit, pulse 61, respirations 20, O2 sat 96% on room air. HEENT: Pupils equal, round, reacting to light and accommodation. Extraocular muscles intact. No icterus. No pallor. No oral thrush. No pharyngeal congestion. NECK: Supple. No JVD. LUNGS: Bilateral vesicular breath sounds. No wheezing. No rhonchi. CVS: S1 and S2 present. Regular. ABDOMEN: Soft. Nontender. Bowel sounds present. No guarding. No rigidity. No rebound tenderness noted. LADIES' HAT TRIMMER: Alert, awake, oriented x3. No focal deficits noted. EXTREMITIES: No edema. MEDICATIONS: Norvasc 5 mg daily, Azactam 1 gm IV every 8 hours, Plavix 75 mg p.o. daily, Synthroid 112 mcg p.o. daily, losartan 100 mg daily, meclizine 25 mg p.o. as needed, Namenda 10 mg b.i.d., Crestor 5 mg p.o. at bedtime, normal saline at 70 mL an hour, sodium chloride tablet 1 gm every 8 hours. LABORATORY DATA: Labs from this morning: WBC 6.4, hemoglobin 11.2, hematocrit 31.2, platelets 145,000, sodium 135, potassium 4.4, chloride 100, bicarb 28, BUN 19, creatinine 0.7, glucose 84, calcium 9.2, AST 79, ALT 58, alkaline phosphatase 444, total protein 7.2, albumin 3.4. ASSESSMENT AND PLAN: Elderly female with history of hypertension, hyperlipidemia, CAD, hypothyroidism, admitted for generalized weakness, urinary tract infection, left loculated pleural effusion, status post hyponatremia, now with orthostatic hypotension and dizziness. The patient is given fluid bolus and continue with normal saline at 70 mL an hour. We will check echocardiogram. We will repeat labs in a.m. Bianca Martines MD [facility] # [id number]
--- NOTE | 2018-04-15 03:56 | CON ---
DATE: 04/14/2018 FOLLOWUP RENAL CONSULTATION LOCATION: The patient is located in room 359, bed A. REQUESTED BY: Dr. Bianca Martines. REASON FOR FOLLOWUP: Hyponatremia. HISTORY OF PRESENT ILLNESS: Mrs. Vazquez is an 78 years old elderly female with a past medical history significant for coronary artery disease, dementia, depression, diabetes, hypertension, hyperlipidemia, hypothyroidism, was admitted with generalized weakness and also dizziness and lightheadedness, and the patient is being treated for possible dehydration and UTI, and her hospital course was complicated by hyponatremia, suspected SIADH, secondary to SIADH, secondary to drug-induced Effexor. The patient is off Effexor, and serum sodium is improving. The patient is not in acute distress. The patient was orthostatic. This morning, started on IV fluids after bolus of 250, and the patient is feeling better, not in acute distress. Denies any dizziness. Denies any chest pain or palpitation. Denies any fever or cough. No abdominal pain. No nausea, vomiting, diarrhea. PHYSICAL EXAMINATION: VITAL SIGNS: As follows; blood pressure 114/66, pulse 61, respirations about 20, temperature 98, and saturation 96%. Height 5 feet, weight is 107 pounds. GENERAL: Mrs. Vazquez is an 78 years old elderly female, moderately built, moderately nourished, not in acute distress. HEENT: Pupils normal, reactive to light and accommodation. Conjunctivae pink. Sclerae anicteric. Tongue is moist. Trachea is midline. Lungs: Symmetric on both sides. Bilateral breath sounds present. Clear to auscultation. CVS: [place] at the fifth intercostal space and midclavicular line. S1, S2 audible. No murmur. No gallop. ABDOMEN: Normal in appearance. Soft, tympanic. No guarding. No rigidity. No hepatosplenomegaly. 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 Sensory and motor system is grossly within normal limits. EXTREMITIES: No cyanosis, no clubbing, no edema. CURRENT MEDICATIONS: Include as follows: Meclizine 25 mg p.o. daily, Azactam 1 gm IV every 8 hours. losartan 100 mg p.o. daily on hold, Crestor 5 mg p.o. at bedtime, Namenda 10 mg p.o. b.i.d., amlodipine 5 mg p.o. daily on hold, Plavix 75 mg daily, and IV fluids normal saline at 70 mL per hour, sodium chloride tablet 1 gm p.o. every 8 hours, and levothyroxine 112 mcg p.o. daily. LABORATORY DATA: Include as follows: WBC 6.4, hemoglobin 12.2, hematocrit is 31.3, platelets 145 as of 04/14/2018, and sodium 135, potassium 4.4, chloride 100, CO 28, BUN 19, creatinine 0.7, glucose 84, calcium 9.2. Total bili 0.9, AST 79, ALT 58, alkaline phosphatase 444, and total protein 7.2, albumin is 3.4. The other laboratory data as of 04/13/2018, free thyroxine is 1.28 and thyroxine level is 12.7 and TSH is 39.4, and serum cortisol as of 04/12/2018 is 12.3. IMPRESSION: In summary, Mrs. Vazquez is an 78 years old elderly female with a history of coronary artery disease, asthma, dementia, depression, hypertension, diabetes, hyperlipidemia, hypothyroidism with low serum sodium. 1. Hyponatremia, most likely secondary to syndrome of inappropriate antidiuretic hormone secretion, secondary to drug-induced, secondary to Effexor, cannot rule out secondary to hypothyroidism. The patient is off Effexor, and serum sodium improved nicely with sodium chloride tablets. Continue sodium chloride tablets for now, and continue IV fluids, and repeat BMP in a.m. 2. Hypertension. Blood pressure is on the low side. I agree to hold losartan and Norvasc. Sugars are under control. 3. Hypothyroidism. Continue Synthroid 112 mcg p.o. daily. We will follow with you. Thank you for allowing me to participate in your patient's care. Bijal Martines MD
[2018-04-15] MEDS: Levothyroxine 112 MCG TAB PO SCH (05:34)
[2018-04-15] MEDS: Sodium Chloride 0.9% 1,000 ML IV SCH (05:34)
[2018-04-15 07:27] LABS: BASO # 0.1 K/uL (0.0-0.2); EOS # 0.2 K/uL (0.0-0.7); EOS % 2.8 % (0.0-4.0); HEMOGLOBIN 10.9 g/dL (11.0-16.0); LYMPH # 2.9 K/uL (1.0-4.3); LYMPH % 41.3 % (20.0-40.0); MEAN CELL VOLUME 98.7 fL (81.0-99.0); MEAN CORPUSCULAR HEMOGLOBIN 34.6 pg (27.0-31.0); MEAN CORPUSCULAR HGB CONC 35.1 g/dL (33.0-37.0); MEAN PLATELET VOLUME 10.8 fL (7.2-11.7); MONO # 0.7 K/uL (0.0-0.8); NEUT # 3.1 K/uL (1.8-7.0); NEUT % 44.9 % (50.0-75.0); NRBC % 0.2 % (0.0-2.0); RBC 3.16 Mil/uL (3.80-5.20); RED CELL DISTRIBUTION WIDTH 14.6 % (11.5-14.5)
[2018-04-15 07:59] LABS: ALB/GLOB RATIO 0.9 (1.0-2.1); ALBUMIN 3.2 g/dL (3.5-5.0); ALT/SGPT 57 U/L (9-52); AST/SGOT 85 U/L (14-36); BLOOD UREA NITROGEN 20 mg/dL (7-17); CALCIUM 8.9 mg/dl (8.6-10.4); GFR AFRICAN-AMERICAN > 60; GFR NON-AFRICAN AMERICAN > 60
[2018-04-15 08:32] LABS: T4 11.9 ug/dL (5.5-11.0)
--- NOTE | 2018-04-15 09:51 | CP.PCM.PN ---
Subjective - Date & Time of Evaluation Date of Evaluation: 04/15/18 Time of Evaluation: 09:51 - Subjective Subjective: pt is seen and examined, follow up consult is dictated #[id number] d/c norvasc d/c nacl tabs, consider midodrine Objective - Vital Signs/Intake and Output Vital Signs (last 24 hours): Temp Pulse Resp BP Pulse Ox 98.3 F 59 L 20 145/76 96 04/15/18 07:27 04/15/18 07:27 04/15/18 07:27 04/15/18 07:27 04/15/18 07:27 - Medications Medications: Current Medications Amlodipine Besylate (Norvasc) 5 mg PO DAILY [facility] Last Admin: 04/14/18 09:24 Dose: 5 mg Clopidogrel Bisulfate (Plavix) 75 mg PO DAILY [facility] Last Admin: 04/14/18 09:24 Dose: 75 mg Aztreonam 1 gm/ Sodium (Chloride) 100 mls @ 100 mls/hr IVPB Q8H [facility] PRN Reason: Protocol Last Admin: 04/15/18 02:25 Dose: 100 mls/hr Sodium Chloride (Sodium Chloride 0.9%) 1,000 mls @ 70 mls/hr IV .[id number] [facility] Last Admin: 04/15/18 05:34 Dose: Not Given Levothyroxine Sodium (Synthroid) 112 mcg PO DAILY@0630 [facility] Last Admin: 04/15/18 05:34 Dose: 112 mcg Losartan Potassium (Cozaar) 100 mg PO DAILY [facility] Last Admin: 04/14/18 09:24 Dose: 100 mg Meclizine HCl (Antivert) 25 mg PO DAILY PRN PRN Reason: dizziness Last Admin: 04/11/18 10:16 Dose: 25 mg Memantine (Namenda) 10 mg PO BID [facility] Last Admin: 04/14/18 17:46 Dose: 10 mg Rosuvastatin Calcium (Crestor) 5 mg PO HS [facility] Last Admin: 04/14/18 21:53 Dose: 5 mg Sodium Chloride (Sodium Chloride Tab) 1 gm PO Q8 [facility] Last Admin: 04/14/18 21:54 Dose: 1 gm - Labs Labs: 04/15/18 07:04 04/15/18 07:04
--- NOTE | 2018-04-15 09:57 | CP.PCM.PN ---
Subjective - Date & Time of Evaluation Date of Evaluation: 04/15/18 Time of Evaluation: 09:57 - Subjective Subjective: Discharge summary dictated #[id number] Objective - Vital Signs/Intake and Output Vital Signs (last 24 hours): Temp Pulse Resp BP Pulse Ox 98.3 F 59 L 20 145/76 96 04/15/18 07:27 04/15/18 07:27 04/15/18 07:27 04/15/18 07:27 04/15/18 07:27 - Medications Medications: Current Medications Amlodipine Besylate (Norvasc) 5 mg PO DAILY [facility] Last Admin: 04/14/18 09:24 Dose: 5 mg Clopidogrel Bisulfate (Plavix) 75 mg PO DAILY [facility] Last Admin: 04/14/18 09:24 Dose: 75 mg Aztreonam 1 gm/ Sodium (Chloride) 100 mls @ 100 mls/hr IVPB Q8H [facility] PRN Reason: Protocol Last Admin: 04/15/18 02:25 Dose: 100 mls/hr Sodium Chloride (Sodium Chloride 0.9%) 1,000 mls @ 70 mls/hr IV .[id number] [facility] Last Admin: 04/15/18 05:34 Dose: Not Given Levothyroxine Sodium (Synthroid) 112 mcg PO DAILY@0630 [facility] Last Admin: 04/15/18 05:34 Dose: 112 mcg Losartan Potassium (Cozaar) 100 mg PO DAILY [facility] Last Admin: 04/14/18 09:24 Dose: 100 mg Meclizine HCl (Antivert) 25 mg PO DAILY PRN PRN Reason: dizziness Last Admin: 04/11/18 10:16 Dose: 25 mg Memantine (Namenda) 10 mg PO BID [facility] Last Admin: 04/14/18 17:46 Dose: 10 mg Rosuvastatin Calcium (Crestor) 5 mg PO HS [facility] Last Admin: 04/14/18 21:53 Dose: 5 mg Sodium Chloride (Sodium Chloride Tab) 1 gm PO Q8 [facility] Last Admin: 04/14/18 21:54 Dose: 1 gm - Labs Labs: 04/15/18 07:04 04/15/18 07:04
--- NOTE | 2018-04-15 15:53 | CP.PCM.PN ---
Subjective - Date & Time of Evaluation Date of Evaluation: 04/15/18 Time of Evaluation: 15:53 - Subjective Subjective: Alert, awake, no sob or dizziness, NAD. Objective - Vital Signs/Intake and Output Vital Signs (last 24 hours): Temp Pulse Resp BP Pulse Ox 98.3 F 59 L 20 114/62 96 04/15/18 07:27 04/15/18 07:27 04/15/18 07:27 04/15/18 15:00 04/15/18 07:27 Intake and Output: 04/15/18 04/15/18 06:59 18:59 Intake Total 340 Balance 340 - Medications Medications: Current Medications Amlodipine Besylate (Norvasc) 5 mg PO DAILY [facility] Last Admin: 04/14/18 09:24 Dose: 5 mg Clopidogrel Bisulfate (Plavix) 75 mg PO DAILY [facility] Last Admin: 04/15/18 10:19 Dose: 75 mg Aztreonam 1 gm/ Sodium (Chloride) 100 mls @ 100 mls/hr IVPB Q8H [facility] PRN Reason: Protocol Last Admin: 04/15/18 10:19 Dose: 100 mls/hr Levothyroxine Sodium (Synthroid) 112 mcg PO DAILY@0630 [facility] Last Admin: 04/15/18 05:34 Dose: 112 mcg Meclizine HCl (Antivert) 25 mg PO DAILY PRN PRN Reason: dizziness Last Admin: 04/11/18 10:16 Dose: 25 mg Memantine (Namenda) 10 mg PO BID [facility] Last Admin: 04/15/18 10:19 Dose: 10 mg Rosuvastatin Calcium (Crestor) 5 mg PO HS [facility] Last Admin: 04/14/18 21:53 Dose: 5 mg - Labs Labs: 04/15/18 07:04 04/15/18 07:04 Assessment and Plan - Assessment and Plan (Free Text) Assessment: Patient admitted with UTI, had low BP and dizziness yesterday, seen and examined. Feeling much better. Blood pressure >130 , no sob or chst pains.Discussed with DR Ruiz, [facility]. Will discontinue cozaar and monitor blood pressure closely.
[2018-04-15 16:56] VITALS: BP 124/70; PULSE 67; TEMP 98.5; O2SAT 97
--- NOTE | 2018-04-15 18:21 | CARD ---
APPROVED REPORT Date of service: 04/15/2018 EXAM: Two-dimensional and M-mode echocardiogram with Doppler and color Doppler. Other Information Quality : GoodRhythm : INDICATION Dizziness and Vertigo Pleural Effusion 2D DIMENSIONS IVSd0.9 (0.7-1.1cm)LVDd2.7 (3.9-5.9cm) LVOT Diameter1.9 (1.8-2.4cm)PWd1.1 (0.7-1.1cm) LVEF (%)65.0 (>50%) M-Mode DIMENSIONS Left Atrium (MM)3.63 (2.5-4.0cm)IVSd1.32 (0.7-1.1cm) Aortic Root2.99 (2.2-3.7cm)LVDd3.35 (4.0-5.6cm) Aortic Cusp Exc.1.14 (1.5-2.0cm)PWd1.32 (0.7-1.1cm) FS (%) 33 %LVDs2.26 (2.0-3.8cm) LVEF (%)62 (>50%) Aortic Valve AoV Peak Imgevcbv663.6cm/sAoV VTI38.5cmAO Peak GR.21mmHg LVOT Peak Mnwmfmwx593.8cm/sLVOT VTI29.89cmAO Mean GR.10mmHg PATY (VMAX)1.96qq7LSB (VTI)2.29jt1EI P 1/2 Cgss754lr Mitral Valve MV E Uomgdcjr64.2cm/sMV A Ilcbpame50.9cm/sE/A ratio0.7 TDI E/Lateral E'0.0E/Medial E'0.0 Tricuspid Valve TR Peak Oyunyipy269pi/sTR Peak Gr.30hmYuTXMF58lvIf LEFT VENTRICLE The left ventricle is normal size. There is mild to moderate concentric left ventricular hypertrophy. The left ventricular systolic function is normal. The left ventricular ejection fraction is within the normal range. There is normal LV segmental wall motion. Transmitral Doppler flow pattern is Grade I-abnormal relaxation pattern. RIGHT VENTRICLE The right ventricle is normal size. The right ventricular systolic function is normal. ATRIA The left atrium is moderately dilated. The right atrium is mildly dilated. AORTIC VALVE The aortic valve is calcified with mildly decreased systoloc excursion. No significant gradients. There mild aortic regurgitation. MITRAL VALVE Mitral annular calcification is moderate. The mitral valve leaflets are normal Mitral regurgitation is trace. TRICUSPID VALVE The tricuspid valve is normal in structure. Mild annular calcification. PULMONIC VALVE There is mild pulmonic valvular regurgitation. GREAT VESSELS The aortic root displays moderate sclerocalcific changes. The IVC was not visualized. PERICARDIAL EFFUSION There is no pericardial effusion. <Conclusion> There is mild to moderate concentric left ventricular hypertrophy. The left ventricular systolic function is normal. There is normal LV segmental wall motion. Transmitral Doppler flow pattern is Grade I-abnormal relaxation pattern. The right ventricular systolic function is normal. Mild to moderate bi-atrial enlargement.. Aortic valve sclerosis.The aortic valve is calcified with mildly decreased systoloc excursion. No significant gradients. Mild aortic regurgitation. Moderate mitral annular calcification. The mitral valve leaflets are normal There is mild pulmonic valvular regurgitation. The aortic root displays moderate sclerocalcific changes. There is no pericardial effusion.
--- NOTE | 2018-04-15 20:32 | PN ---
DATE: 04/15/2018 ENDO FOLLOWUP NOTE LOCATION: In room 359. SUBJECTIVE: This is an 78-year-old female with recent overt hypothyroidism, currently improving both clinically and metabolically as noted thereof. LABORATORY DATA: Her latest chemistries today showed a BUN of 20, sodium 136, potassium 4.6, chloride 104, CO2 of 24, glucose 84, and creatinine 0.8. Her latest thyroid studies showed a level of 11.9, which has improved and is much lowered with the recent dose adjustments as given. Her free T4 is 1.37 and the TSH is near normalizing with the current level of 24.40. Her cortisol level is 12.3. ASSESSMENT AND PLAN: So at this time, we will continue the modified levothyroxine given as 112 mcg daily as given. We will titrate incrementally as indicated to optimize metabolic control. We will obtain serial chemistries and supplement accordingly as needed. We will follow. Rylie Noble MD
--- NOTE | 2018-04-15 22:54 | CP.PCM.PN ---
Subjective - Date & Time of Evaluation Date of Evaluation: 04/15/18 Time of Evaluation: 14:20 - Subjective Subjective: Patient seen and evaluated still has dizziness Dr. Kim consult for Tilt table test Objective - Vital Signs/Intake and Output Vital Signs (last 24 hours): Temp Pulse Resp BP Pulse Ox 98.5 F 67 20 124/70 97 04/15/18 16:00 04/15/18 16:00 04/15/18 16:00 04/15/18 16:00 04/15/18 16:00 Intake and Output: 04/15/18 04/16/18 18:59 06:59 Intake Total 340 830 Balance 340 830 - Labs Labs: 04/15/18 07:04 04/15/18 07:04
--- NOTE | 2018-04-16 03:02 | PN ---
DATE: 04/15/2018 FOLLOWUP RENAL CONSULTATION LOCATION: The patient is located in room 359, bed A. REQUESTED BY: Bianca Martines MD REASON FOR FOLLOWUP: Hyponatremia, SIADH. SUBJECTIVE: Mrs. Vazquez is an 78-year-old elderly female with a past medical history significant for CAD, dementia, depression, diabetes, hypertension, hyperlipidemia, hypothyroidism who was admitted with chief complaints of dizziness and generalized weakness. The patient is being treated for initially with a UTI and hospital course complicated by hyponatremia. 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 Effexor is off and started on sodium chloride tablets, and serum sodium gradually improved.. The patient was somewhat orthostatic yesterday and started on IV fluids with normal saline 250 bolus and then normal saline about 70 mL/hour. The patient is not in acute distress. She denies any complaints. Blood pressure medication was on hold yesterday. PHYSICAL EXAMINATION: VITAL SIGNS: As follows: Blood pressure this morning 145/76, pulse 59, respiration 20, temperature 98.3, saturation 96%. Height 5 feet. Weight is 107 pounds. GENERAL: Mrs. Vazquez is an 78-year-old elderly female. HEENT: Pupils are normal and reactive to light and accommodation. Conjunctivae are pink. Sclerae are anicteric. Tongue is moist. Trachea is midline. LUNGS: Symmetric on both sides. Bilateral breath sounds present. Clear to auscultation. CVS: [place] at the fifth intercostal space, midclavicular line. S1, S2 audible. No murmur or gallop. ABDOMEN: Normal in appearance. Soft, tympanic. No guarding. No rigidity. No hepatosplenomegaly. DELI MANAGER: The patient is alert, awake, oriented x2. Sensory and motor system is grossly within normal limits. EXTREMITIES: No cyanosis, no clubbing, no edema. CURRENT MEDICATIONS: Include as follows: Meclizine 25 mg p.o. daily, Azactam 1 gm IV piggyback every 8 hours, Crestor 5 mg at bedtime, Namenda 10 mg p.o. b.i.d., Plavix 75 mg daily, levothyroxine 112 mcg p.o. daily, Norvasc 5 mg p.o. daily. LABORATORY DATA: Include as follows as of 04/15/2018: WBC is 7, hemoglobin is 10.9, hematocrit is 31.2, and platelets 139. Sodium 136, potassium 4.6, chloride 104, CO2 of 24, BUN 20, creatinine 0.8, glucose 84, calcium 8.9. Total bili 0.7, AST 85, ALT 57, alkaline phosphatase 457, total protein 7, albumin is 3.2. Free thyroxine is 1.37, T4 is 11.9 and TSH is 24.4. ASSESSMENT AND PLAN: In summary, Mrs. Vazquez is an 78-year-old elderly female with hypertension, diabetes, dementia, depression, arthritis, hypothyroidism, is being treated for urinary tract infection with Klebsiella pneumoniae and Enterococcus faecalis on Azactam and is status post hyponatremia. 1. Hyponatremia, most likely secondary to syndrome of inappropriate secretion of antidiuretic hormone secondary to drug induced, secondary to Effexor. The patient is off the medication. Serum sodium is back to normal. Continue her current medications. 2. The patient was orthostatic and will hold blood pressure medications. Repeat BMP in a.m. Consider midodrine 2.5 mg daily p.r.n. Hold Norvasc. 3. Hypothyroidism. Continue Synthroid. Will we will follow with you. Thank you for allowing me to participate in your patient's care. Bijal Martines MD
--- NOTE | 2018-04-16 18:39 | DS ---
DATE OF POSSIBLE TRANSFER TO [facility] FOR SUBACUTE REHAB: 04/15/2018. DISCHARGE DIAGNOSES: Status post urinary tract infection, status post hyponatremia, status post orthostatic hypotension, status post dizziness, hypothyroidism, left loculated pleural effusion, history of hypertension, hyperlipidemia, and coronary artery disease. HISTORY OF PRESENT ILLNESS: Ms. Vazquez is an 78-year-old female with past medical history of CAD, hypertension, hyperlipidemia, hypothyroidism, dementia who has been following up with Dr. Jo as primary care physician, came into the emergency room for symptoms of not feeling well, fatigued, and dizziness. In the ED, the patient was found to be having UTI and left loculated effusion, and the patient is being admitted for further management. Today, the patient is feeling much better. Denies any headache. Complaining of minimal dizziness getting up from out of bed to standing, much improved from admission. Denies any nausea or vomiting. Denies any chest pain, shortness of breath, or wheezing. Denies any abdominal pain, diarrhea, or constipation. Denies any urinary complaints. Denies any leg pains or leg cramps. Denies any other neurologic symptoms. All other systems reviewed and were found to be negative. PHYSICAL EXAMINATION: GENERAL: Elderly female, lying in bed, in no acute distress. VITAL SIGNS: Blood pressure 124/70, pulse 67, respirations 20, temperature 98.5 degrees Fahrenheit, O2 sat is 97% on room air. HEENT: Pupils equal, round, and reacting to light and accommodation. Extraocular muscles intact. No icterus. No pallor. No oral thrush. No pharyngeal congestion. No nasal congestion. NECK: Supple. No JVD. LUNGS: Bilateral vesicular breath sounds. No wheezing. No rhonchi. CVS: S1 and S2 present, regular. ABDOMEN: Soft, nontender. Bowel sounds present. No guarding. No rigidity. No rebound tenderness noted. DIRECTOR OF ATHLETICS: Alert, awake, oriented x3. No focal deficits noted. EXTREMITIES: No edema. Palpable peripheral pulses. LABORATORY DATA: Labs from this morning: WBC 7, hemoglobin 10.9, hematocrit 31.2, platelets 139. Sodium 136, potassium 4.6, chloride 104, bicarb 24, BUN 20, creatinine 0.8, glucose 84, calcium 8.9. AST 85, ALT 57, alkaline phosphatase 457, total protein 7, albumin 3.2. TSH 24.4. UA negative on 04/11/2018. Initial urine culture grew Klebsiella pneumoniae. CT head negative. CT chest consistent with small loculated pleural effusion. HOSPITAL COURSE: The patient was admitted to the hospital. The patient was started on IV antibiotic, Azactam. The patient was restarted on her medication. Her Synthroid dose adjusted. The patient was evaluated by Pulmonary for loculated pleural effusion. As it was very small, it was not accessible and did not recommend any further workup. Her hospital course was complicated by hyponatremia. The patient was evaluated by Renal. Her Effexor was discontinued and her sodium level improved. The patient was seen by Endocrinology for hypothyroidism, her dose adjusted. The patient was also complaining of dizziness from sitting to standing position to physical therapy. Physical therapy helping her to get up from bed slowly. We will hold Cozaar. Continue with Norvasc. We will monitor blood pressure closely for orthostatic blood pressure. The patient is otherwise hemodynamically stable and cleared by Pulmonary and Renal, and the patient's family agreed for subacute rehab placement. As the patient is otherwise hemodynamically stable, we will discharge the patient to subacute rehab. CONDITION UPON DISCHARGE: The patient is alert, awake, oriented x3, and hemodynamically stable. DISCHARGE MEDICATIONS: Amlodipine 5 mg daily, Plavix 75 mg daily, Synthroid 112 mcg p.o. daily, Antivert 25 mg p.o. as needed, Namenda 10 mg daily, and Crestor 5 mg p.o. at bedtime. We will discontinue Effexor and Cozaar. Monitor blood pressure, and we will add ProAmatine if necessary as outpatient. I advised the patient to follow up with Cardiology for her sclerotic aorta and aortic stenosis and followup of other coronary artery disease. DISCHARGE INSTRUCTIONS: Follow up with PMD, follow up with Cardiology, follow up with Pulmonary. Needs to have a repeat chest x-ray done for followup of effusion, follow up with Endocrinology. Bianca Martines MD
== END 2018-04-15 22:38 | DRG 690 ==
LOC: C.ER 12:32 → C.9E 16:00 → C.3T 17:35
PROVIDERS: ADMIT Internal Medicine; ATTEND Internal Medicine
DX: N39.0 Urinary tract infection, site not specified (principal); J98.11 Atelectasis; B96.1 Klebsiella pneumoniae [K. pneumoniae] as the cause of diseases classified elsewhere; E78.5 Hyperlipidemia, unspecified; E83.39 Other disorders of phosphorus metabolism; E86.0 Dehydration; E87.5 Hyperkalemia; E11.9 Type 2 diabetes mellitus without complications; E06.3 Autoimmune thyroiditis; F02.80 Dementia in other diseases classified elsewhere, unspecified severity, without behavioral disturbance, psychotic disturbance, mood disturbance, and anxiety; F41.1 Generalized anxiety disorder; F32.9 Major depressive disorder, single episode, unspecified; G30.9 Alzheimer's disease, unspecified; I10 Essential (primary) hypertension; I25.10 Atherosclerotic heart disease of native coronary artery without angina pectoris; J45.909 Unspecified asthma, uncomplicated; Z95.1 Presence of aortocoronary bypass graft